=== PATIENT | male | born 1965 | race Caucasian/White ===

== ENCOUNTER 2024-06-20 18:37 | Emergency (ER) | payer OTHER, SELFPAY ==
--- OUTSIDE RECORDS SUMMARY | 2024-06-20 18:40 | XMS_ITS | Clinical Summary ---
Author Organization [facility] Address [address] [place] [address] Care Team Providers Care Forms Designer Name Role Phone Ranjit Trimble MD Primary Care Provider Karey Fleming PROMOTIONS DIRECTOR Unavailable [phone] Allergies No known active allergies Medications Multivitamin Cmb No.21-Iron-FA 18-400 mg-mcg tab Take 1 tablet by mouth once daily. Active mometasone (NASONEX) (50 mcg each actuation) nasal spray Inhale 1 Aguila into both nostrils 2 times daily. Active nitroglycerin (NITROSTAT) 0.4 mg sublingual tabletIndication s:NSTEMI (non-ST elevated myocardial infarction) (HC) Place 1 tablet under the tongue every 5 minutes if needed. 25 tablet 12/22/2019 3:41 PM CDT 0 Active cholecalciferol 5,000 unit tab tablet Take 1 Tablet (5,000 units) by mouth once daily. 2 Active oxygen-air delivery systems (HOME OXYGEN)Indicatio ns:Moderate persistent asthma without complication (HC),Hypoxia,TITUS (obstructive sleep apnea) Oxygen concentrator for home use. Liters per minute: 2l per nasal cannula. Frequency of use: Nocturnal;. Length of need: 99 Months.(no portability) Cisco 525DS 1 Each 3 Active albuterol HFA (Ventolin HFA) 90 mcg/actuation inhalerIndicatio ns:Moderate persistent asthma without complication (HC) Inhale 2 Puffs by mouth 4 times daily if needed for Shortness of Breath 2nd choice or Wheezing 1st choice. 18 g 4 Active fluticasone propion-salmeter oL (Advair Diskus) 500-50 mcg/Dose diskus inhalerIndicatio ns:Moderate persistent asthma without complication (HC) INHALE 1 PUFF 2 TIMES A DAY 180 Each 3 4 Active Singulair 10 mg tabletIndication s:Moderate persistent asthma without complication (HC),Chronic rhinitis TAKE 1 TABLET AT BEDTIME 90 Tablet 3 4 Active clopidogreL (PLAVIX) 75 mg tabletIndication s:Coronary artery disease due to calcified coronary lesion Take 1 Tablet (75 mg) by mouth once daily. 90 Tablet 3 4 Active atorvastatin (LIPITOR) 40 mg tabletIndication s:Coronary artery disease due to calcified coronary lesion Take 1 Tablet (40 mg) by mouth once daily. 90 Tablet 3 4 Active ezetimibe (ZETIA) 10 mg tabletIndication s:Coronary artery disease due to calcified coronary lesion,NSTEMI (non-ST elevated myocardial infarction) (HC) Take 1 Tablet (10 mg) by mouth once daily. 90 Tablet 3 4 Active polyethylene glycol-electroly te (GOLYTELY) 236-22.74-6.74 -5.86 gram suspensionIndica tions:Encounter for screening colonoscopy Drink 2 liters (half the bottle) the day before colonoscopy and 2 liters (remaining prep) 6 hours prior to colonoscopy appointment. 4000 mL 5 Active semaglutide, weight loss, (Wegovy) 2.4 mg/0.75 mL subcutaneous penIndications:C lass 2 severe obesity with body mass index (BMI) of 35 to 39.9 with serious comorbidity (HC) Inject 2.4 mg subcutaneous once weekly. 5 Active losartan-hydroch lorothiazide, 50-12.5 mg, (Hyzaar) 50-12.5 mg tabletIndication s:Essential hypertension TAKE 1 TABLET DAILY 90 Tablet 5 Active CPAPIndications: TITUS (obstructive sleep apnea) CPAP (E0601) machine for home use at pressure: 5-16 , Choice of mask (A7030 or A7034) w/full face cushion (A7031) x1/mo, nasal cushion (A7032) x2/mo, or nasal pillows (A7033) x 2/mo; Length of Need: 99 months; Frequency of use: Daily 1 Each 11 5 Active Active Problems Problem Noted Date Diagnosed Date Personal history of nicotine dependence 06/29/19 23 06/28/2022 Body mass index (bmi) 32.0-32.9, adult 3 Colon polyp 03/31/2021 Overview (04/14/2024): Colonoscopy 03/2021 14 mm TA, repeat in 3 years Colonoscopy 03/2024 normal, repeat in 5 years Coronary artery disease involving [place] heart 0 04/28/2020 06/28/2022 Overview (06/28/2022): Replacing diagnoses that were inactivated after the 12/16/2020 regulatory import. Essential hypertension 12/29/2019 NSTEMI (non-ST elevated myocardial infarction) 1 Overview (12/22/2019): - coronary angiogram on 12/22/2019 with SHAYNA to RCA Unstable angina 12/21/2019 Vitamin D deficiency 11/13/2018 Obstructive sleep apnea 02/11/2018 Adenomatous colon polyp 11/26/2017 Overview (04/14/2024): Colonoscopy 11/2017 polyp, repeat in 3 years Colonoscopy 03/2024 normal, repeat in 5 years Moderate persistent asthma without complication 12/28/2014 Chronic sinusitis 12/28/2014 Severe persistent asthma 12/28/2014 023 Major depressive disorder, single episode, unspe cified 12/05/2012 Accidental drug overdose 04/21/2012 Fam hx-ischem heart disease 05/31/2011 Overview (05/31/2011): Brother had KS at 49 Pneumonitis 06/21/2008 Overview (06/21/2008): Evaluated by Dr. [place] and Paez. No positive fungal culture, but treated with 2 courses of itraconazole in the past few years. Bronchiectasis without acute exacerbation 2007 Overview (06/28/2022): Bronchiectasis NOS Anxiety 09/19/2006 Insomnia 09/19/2006 Resolved Problems Problem Noted Date Diagnosed Date Resolved Date TIA (transient ischemic attack) 04/20/2012 04/21/2012 Encounters Date Type Department Care Team Description 05/20/2024 10:15 AM MANUSCRIPTS CURATOR Telemedicine [facility] [address] [place] [address] [address] [facility] [address] [place] [address] Karey Fleming, PROMOTIONS DIRECTOR Telehealth 05/15/2024 Travel 05/12/2024 Refill [facility] [address] [place] [address] Glory Blunt DO Refill Request (Hyzaar) 04/15/2024 Orders Only [facility] [address] [place] [address] Rui Pope MD 1 scan: (1-Ord) [facility] 04/14/2024 8:27 AM MANUSCRIPTS CURATOR - 04/14/2024 11:59 PM MANUSCRIPTS CURATOR Hospital Encounter Rui Pope MD 04/14/2024 Orders Only [facility] [address] [facility] [address] [place] [address] Rui Pope MD <No scans attached> 04/14/2024 Surgery [facility] [address] [facility] [address] [place] [address] Rui Pope MD colonoscopy, screening 04/13/2024 Telephone [facility] [address] [place] [address] Rui Pope MD Questions (Colonoscopy) 04/09/2024 8:05 AM MANUSCRIPTS CURATOR Office Visit [facility] [address] [place] [address] Glory Blunt DO Pre-Op Exam (Colonoscopy 04/14/24) 04/09/2024 Travel 04/07/2024 Telephone [facility] [address] [place] [address] Rui Pope MD Appointment Reminder (Colonoscopy at [facility] 04/14/24) 03/26/2024 Telephone [facility] [address] [place] [address] Rui Pope MD Need Meds from Last 3 Months Immunizations Immunization Administration Dates Next Due COVID-19 vaccine (DecoSnap NTDenty's 30mcg/0.3mL) PF, MDV 06/28/2020,06/07/2020 INFLUENZA, IIV3 PF (AGE >= 6 MO) 03/15/2014 Influenza Virus, Unspecified 01/27/1996 Influenza, CCIIV3 (Age >=6 MO) (Egg Free) 2023 Influenza, IIV3 (Age >=3 years) 01/15/2012,12/30 Influenza, IIV4 12/29/2019,12/11/2018 Influenza, IIV4 (=>6mos) MDV 12/13/2016 Influenza,CCIIV4 PRESERV FREE 12/31/2022, 022,03/15/2018 Pneumococcal Conj 20-valent (Prevnar 20) 023 Pneumococcal Poly,23-Valent (Pneumovax) 04/21/19 13 Tdap 05/23/2022,12/30/2008 Zoster (Shingrix-RZV, recombinant) 05/23/2022, Family History Medical History Relation Name Comments Heart Disease Brother 2 [place] age 49 Diabetes Brother 3 same brother wi th KS Allergies Father Asthma Father Cancer-prostate Father Lymphoma Mother Good Health Sister 2 Allergies Son Relation Name Status Comments Brother 1 Alive Brother 2 Brother 3 Father Mother Sister 1 Alive Sister 2 Son Social History Tobacco Use Types Packs/Day Years Used Date Smoking Tobacco: Former Cigarettes Q uit: 03/18/1993 Smokeless Tobacco: Never Tobacco Cessation:Counseling Given: Yes Comments:Quit 03/18/93 Alcohol Use Standard Drinks/Week Comments No 0 (1 standard drink = 0.6 oz pur e alcohol) sober since 11/25/15 PHQ-2 Answer Date Recorded PHQ-2 TOTAL SCORE 0 04/09/2024 Social Connections Answer Date Recorded Do you often feel lonely or isolated from those around you? 0 06/23/2023 Financial Resource Strain Answer Date R ecorded Difficulty of Paying Living Expenses 3 06/23/2023 Difficulty of Paying Living Expenses Not on file 06/23/2023 Food Insecurity Answer Date Recorded Do you worry your food will run out before you are able to buy more? 1 06/23/2023 Transportation Needs Answer Date Record ed Does lack of transportation keep you from medica l appointments? 1 06/23/2023 Does lack of transportation keep you from work, meetings or getting things that you need? 1 06/23/2023 Housing Stability Answer Date Recorded What is your housing situation today? 1 06/23/2023 Utilities Answer Date Recorded Do you have trouble paying f or utilities (for example, heat, electricity, water, phone)? 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 Not on file Not on file Obstetrics History Last Filed Vital Signs Vital Sign Reading Time Taken Comments Blood Pressure 136/80 04/09/2024 8:11 AM MANUSCRIPTS CURATOR Pulse 78 04/09/2024 8:11 AM MANUSCRIPTS CURATOR Temperature 36.5 C (97.7 F) 04/09/2024 8:11 AM MANUSCRIPTS CURATOR Respiratory Rate 16 07/12/2020 3:17 PM CDT Oxygen Saturation 93% 04/09/2024 8: 11 AM MANUSCRIPTS CURATOR Inhaled Oxygen Concentration - - Weight 97.4 kg (214 lb 12.8 oz) 04/09/2024 8:11 AM MANUSCRIPTS CURATOR Height 188 cm (6' 2) 01/28/2024 9:45 AM MANUSCRIPTS CURATOR Body Mass Index 27.58 01/28/2024 9:45 AM MANUSCRIPTS CURATOR Plan of Treatment Health Maintenance Due Date Last Done Comments Hepatitis C screening for ag e 18-79 1983 BMI (ht and wt on same day) for age 18+ 01/27/2025 01/28/2024, 07/02/2023, 06/28/2022, Additional history exists Depression screening for age 12+ 04/09/2025 04/09/2024, 06/28/2022, 03/24/2020, Additional history exists Lipids for age 45-75 02/03/2029 02/04/2024, 06/28/2022, 01/03/2021, Additional history exists Colonoscopy through age 75 04/14/202904/14, 03/30/2021, 11/22/2017, Additional history exists Tetanus booster 05/23/2032 05/23/2022, 12/30/2008 Tdap Completed 05/23/2022, 12/30/2008 Zoster (shingles) series for age 50+ Completed 05/23/2022, 11/13/2018 HIV for age 15-65 Completed 06/28/2022 Pneumococcal series for age 50+ Completed , 04/21/2012 COVID-19 vaccine series Completed 02/23/20 24, 12/31/2022, 03/05/2022, Additional history exists Influenza Vaccine Completed 02/23/2024, , 01/24/2022, Additional history exists Goals Goal Patient Goal Type Associated Problems Recent Progress Patient-Stated? Author BLOOD PRESSURE - MAINTAINS BP less than 140/90 Blood Pressure Edgar Jones MD Procedures Procedure Name Priority Date/Time Associated Diagnosis Comments COLONOSCOPY SCREENING Routine 04/14/2024 12:00 AM MANUSCRIPTS CURATOR Encounter for screening colonoscopy POTASSIUM Routine 04/09/2024 8:38 AM MANUSCRIPTS CURATOR Pre-op evaluation LIPID PANEL Routine 02/04/2024 9:34 AM MANUSCRIPTS CURATOR Coronary artery disease due to calcified coronary lesion LC HIV-1/O/2, 4TH GENERATION Routine 06/28/2022 11:30 AM CDT Screening for HIV (human immunodeficiency virus) SURGICAL PROCEDURE (TYPE PROCEDURE DESCRIPTION BELOW) Encounter for screening colonoscopy from Last 3 Months or Most Recently Relevant to Health Maintenance Results * COLONOSCOPY SCREENING (04/14/2024 12:00 AM MANUSCRIPTS CURATOR) Rui Pope MD GI PROCEDURE ORD Final Re sult * POTASSIUM (04/09/2024 8:38 AM MANUSCRIPTS CURATOR) POTASSIUM 5.3 3.5 - 5.3 mmol/L [facility] Blood BLOOD SPECIMEN / Unknown 04/09/2024 8:38 AM MANUSCRIPTS CURATOR 04/09/2024 8:38 AM MANUSCRIPTS CURATOR Glory Rigobertosánchez DO CHEMISTRY Final Result [facility] [address] [place] [address], [facility] [address] [place] [address] * LIPID PANEL (02/04/2024 9:34 AM MANUSCRIPTS CURATOR) Pathologist [facility] CHOLESTEROL, TOTAL 139 <200 mg/dL [facility] HDL CHOLESTEROL 56 > OR = 40 mg/dL [facility] TRIGLYCERIDES 105 <150 mg/dL [facility] LDL-CHOLESTEROL 64 mg/dL (calc) [facility] Comment: Reference range: <100 Desirable range <100 mg/dL for primary prevention; <70 mg/dL for patients with CHD or diabetic patients with > or = 2 CHD risk factors. LDL-C is now calculated using the Rui-Manoj calculation, which is a validated novel method providing better accuracy than the Friedewald equation in the estimation of LDL-C. Rui RENTERIA et al. RADHA. 2013;310(19): 5297-4103 (http://education.Medesen.Wavo.me/faq/RYD177) CHOL/HDLC RATIO 2.5 <5.0 (calc) [facility] NON HDL CHOLESTEROL 83 <130 mg/dL (calc) [facility] Comment: For patients with diabetes plus 1 major ASCVD risk factor, treating to a non-HDL-C goal of <100 mg/dL (LDL-C of <70 mg/dL) is considered a therapeutic option. Blood BLOOD SPECIMEN / Unknown 02/04/2024 9:34 AM MANUSCRIPTS CURATOR 02/04/2024 9:34 AM MANUSCRIPTS CURATOR Ranjit Trimble MD CHEMISTRY Final Result [facility] [address] [place] [address], [facility] [address] [place] [address] * LC HIV-1/O/2, 4TH GENERATION (06/28/2022 11:30 AM CDT) [facility] HIV Scr 4th Gen Non Reactive Non Reactive 07/01/2022 12:07 PM CDT [facility] Comment: HIV Negative HIV-1/HIV-2 antibodies and HIV-1 p24 antigen were NOT detected. There is no laboratory evidence of HIV infection. Blood BLOOD SPECIMEN / Unknown Venipuncture / Unknown 06/28/2022 11:30 AM CDT 06/28/2022 11:33 AM CDT Narrative [facility] - 07/01/2022 12:07 PM CDT Performed at: [address] [place] [id number] City Editor: Rakesh Nicole MD, Phone: [phone] us Glory Blunt DO LABORATORY Final Result [facility] [address] [place] [id number], from Last 3 Months or Most Recently Relevant to Health Maintenance Insurance [facility] Advance Directives * Full Code (Latest Code Status on File) Date Activated Date Inactivated Comments 12/21/2019 7:21 PM 12/23/2019 2:43 PM Question Answer Comments Code Status Discussion: Per Existing Order * Full Code Date Activated Date Inactivated Comments 04/20/2012 9:37 PM 04/21/2012 1:42 PM * Full Code Date Activated Date Inactivated Comments 01/04/2009 11:57 AM 01/04/2009 9:31 PM * Full Code Date Activated Date Inactivated Comments 06/21/2008 6:40 PM 06/22/2008 9:32 PM Care Teams Forms Designer Relationship Specialty Start Date End Date Ranjit Trimble MD [address] [place] [address] [address] [place] [address] PCP - General Cardiovascular Disease 01/23/24 Karey Fleming, PROMOTIONS DIRECTOR [address] [place] [address] Sleep Medicine 01/28/24
--- OUTSIDE RECORDS SUMMARY | 2024-06-20 18:40 | XMS_ITS | Encounter Summary ---
Author Organization [place] Address [address] [place] [address]. [place] [address] Care Team Providers Care Sporting Goods Sales Manager Name Role Phone Edgar Torres Primary Care Provider Radha Acevedo MD Unavailable [phone] Encounter Details Date Type Department Care Team (Late st Contact Info) Description 12/21/2019 External Order Results [facility] [address] [place] [address] Outside, Provider Social History Tobacco Use Types Packs/Day Years Used Date Smoking Tobacco: Former Smokeless Tobacco: Never Alcohol Use Standard Drinks/Week Comments Yes 0 (1 standard drink = 0.6 oz pur e alcohol) social Sex and Gender Information Value Date Recorded Sex Assigned at Not on file Legal Sex Male 3:43 AM GEOGRAPHIC INFORMATION SYSTEM SURVEYOR Gender Identity Not on file Sexual Orientation Not on file documented as of this encounter Plan of Treatment Not on file documented as of this encounter Procedures Procedure Name Priority Date/Time Associated Diagnosis Comments COVID-19 VIRUS (CORONAVIRUS) BY PCR (EXTERNAL RESULT) Routine 12/21/2019 10:36 PM CDT documented in this encounter Results * COVID-19 Virus (Coronavirus) by PCR (External Result) (12/21/2019 10:36 PM CDT) COVID-19 Virus by PCR (External Result) Negative Negative LABDE SCAN 12/21/2019 10:3 6 PM CDT Iker BAEZ PFT - 12/31/2019 9:27 AM CDT Verified by Raudel Nath on 12/31/2019. us Patient Reported LABORATORY Edited Result - Final NESTOR PFT LABDE SCAN documented in this encounter Visit Diagnoses Not on filedocumented in this encounter Care Teams Sporting Goods Sales Manager Relationship Specialty Start Date End Date Edgar Torres PCP - General Family Practice 02/18/14 Radha Ferro MD [address] [facility] [address] [facility] [place] [address] Internal Medicine 07/11/14 documented as of this encounter
--- OUTSIDE RECORDS SUMMARY | 2024-06-20 18:40 | XMS_ITS | Referral Summary ---
Author Organization [facility] Address [address] [place] [address] Care Team Providers Care Manager Continuous Improvement Name Role Phone Unavailable Primary Care Provider Unavailabl e Allergies No known active allergies Medications fluticasone 500 mcg-salmeterol 50 mcg (ADVAIR) 500-50 mcg/dose Inhl DsDv diskus inhaler Inhale 1 puff Twice a Day. Active multivitamin (CERTAVITE) 18-400 mg-mcg oral tablet Take 1 tablet by mouth once daily. Active aspirin 81 mg oral enteric coated tablet Take 81 mg by mouth once daily. Active cholecalciferol (VITAMIN D3) 400 unit oral Tab Take 400 Units by mouth once daily. Active fluticasone (FLONASE) 50 mcg/actuation nasal spray Instill 2 sprays into EACH nare once daily. Active Fish Oil (FISH OIL) 340-1,000 mg oral capsule Take 1,000 mg by mouth once daily. Active Active Problems Problem Noted Date Diagnosed Date Chronic sinusitis 12/28/2014 Severe persistent asthma 12/28/2014 Anxiety state 09/19/2006 Insomnia 09/19/2006 Social History Tobacco Use Types Packs/Day Years Used Date Smoking Tobacco: Former Sex and Gender Information Value Date Recorded Sex Assigned at Not on file Legal Sex Male 1:30 PM CDT Gender Identity Not on file Sexual Orientation Not on file Last Filed Vital Signs Vital Sign Reading Time Taken Comments Blood Pressure 124/64 12/26/2016 1:18 PM CDT Pulse 81 12/26/2016 1:18 PM CDT Temperature - - Respiratory Rate - - Oxygen Saturation 93% 12/26/2016 1:18 PM CDT RA Inhaled Oxygen Concentration - - Weight 110.7 kg (244 lb) 12/26/2016 1:18 PM CDT Height 188 cm (6' 2) 12/26/2016 1:18 PM CDT Body Mass Index 31.33 12/26/2016 1:18 PM CDT Plan of Treatment Not on file Insurance [employer] OUT OF STATE COMMERCIAL
--- OUTSIDE RECORDS SUMMARY | 2024-06-20 18:40 | XMS_ITS | Clinical Summary ---
Author Organization [place] Address [facility] [place] [address] Care Team Providers Care Human Relations Manager Name Role Phone Edgar Torres Primary Care Provider Radha Acevedo MD Unavailable Allergies No known active allergies Medications Mometasone Furoate (NASONEX NA) Apply 1 spray into each nare daily Active albuterol 90 MCG/ACT inhaler Inhale 2 puffs into the lungs 3 times daily as needed. Active Saline (SODIUM CHLORIDE) 0.65 % SOLN [place] 4 Squirts in nostril 4 times daily. Active zolpidem (AMBIEN) 10 MG tabletIndicatio ns:Insomnia Take 1 tablet by mouth nightly as needed for sleep. 30 tablet 6 3 Active fluticasone-dara meterol (ADVAIR) 500-50 MCG/DOSE diskus inhaler Inhale 1 puff into the lungs every 12 hours Active CALCIUM PO Take 1 tablet by mouth daily 0 Active aspirin EC 81 MG EC tablet Take 81 mg by mouth daily Active albuterol (PROVENTIL) (2.5 MG/3ML) 0.083% neb solution Take 2.5 mg by nebulization every 6 hours as needed for shortness of breath / dyspnea or wheezing Active cholecalciferol (VITAMIN D3) 125 mcg (5000 units) capsule Take 125 mcg by mouth daily Active ticagrelor (BRILINTA) 90 MG tablet Take 90 mg by mouth 2 times daily Active metoprolol tartrate (LOPRESSOR) 12.5 mg TABS half-tab Take 12.5 mg by mouth 2 times daily Active losartan (COZAAR) 25 MG tablet Take 25 mg by mouth daily Active rosuvastatin (CRESTOR) 20 MG tablet Take 20 mg by mouth At Bedtime Active montelukast (SINGULAIR) 10 MG tablet Take 10 mg by mouth At Bedtime Active Active Problems Problem Noted Date Diagnosed Date Coronary artery disease invo [place] heart, angina presence unspecified, unspecified vessel or lesion type 04/28/2020 Overview (12/16/2020): Replacing diagnoses that were inactivated after the 12/16/2020 regulatory import. Chest pain, unspecified type 04/28/2020 Anxiety 11/20/2012 Insomnia 11/20/2012 Asthma 11/14/2011 Immunizations Name Administration Dates Next Due Influenza (IIV3) PF 01/16/2013,01/15/2012,2008 Influenza (intradermal) 01/27/1996 Influenza Vaccine >6 months,quad, PF 12/11/2018, 03/15/2018,12/13/2016 Pneumococcal 23 valent 04/21/2012 Tdap (Adult) Unspecified Formulation 12/30/2008 Zoster recombinant adjuvanted (Shingrix) 019 Family History Medical History Relation Comments Diabetes Brother Myocardial Infarction Brother Heart Failure Father Other Cancer Maternal Grandmother Diabetes Mother Other Cancer Mother lymphatic Heart Failure Paternal Grandfather Other Cancer Paternal Grandmother Relation Status Comments Brother Alive Father (Age 72) heart failure Maternal Grandfather Maternal Grandmother Mother (Age 75) cancer Paternal Grandfather Paternal Grandmother Sister Alive Social History Tobacco Use Types Packs/Day Years Used Date Smoking Tobacco: Former Cigarettes 2 2 Smokeless Tobacco: Never Tobacco Cessation:Counseling Given: No Alcohol Use Standard Drinks/Week Comments Not Currently 0 (1 standard drink = 0.6 oz pure alcohol) Prior alcohol abuse - sober 4+ years Adolescent Education Answer Date Record ed Getting School Help Needed Not on file 12/23 Sex and Gender Information Value Date Recorded Sex Assigned at Not on file Legal Sex Male 3:43 AM ANALYSIS INTERN Gender Identity Not on file Sexual Orientation Not on file Last Filed Vital Signs Vital Sign Reading Time Taken Comments Blood Pressure 147/89 04/29/2020 9:00 AM ANALYSIS INTERN Pulse 80 04/29/2020 9:00 AM ANALYSIS INTERN Temperature 35.2 C (95.4 F) 04/29/2020 9:00 AM ANALYSIS INTERN Respiratory Rate 20 04/29/2020 9:00 AM ANALYSIS INTERN Oxygen Saturation 92% 04/29/2020 9:00 AM ANALYSIS INTERN Inhaled Oxygen Concentration - - Weight 118.9 kg (262 lb 1.6 oz) 04/28/2020 7:51 PM ANALYSIS INTERN Height 188 cm (6' 2) 04/28/2020 7:51 PM ANALYSIS INTERN Body Mass Index 33.65 04/28/2020 7:51 PM ANALYSIS INTERN Plan of Treatment Not on file Insurance BCBS OUT OF STATE Advance Directives For more information, please contact: [phone] * Full Code (Latest Code Status on File) Date Activated Date Inactivated Comments 04/29/2020 10:18 AM Question Answer Comments Code status determined by: Discussion with patie nt/ legal decision maker * Full Code Date Activated Date Inactivated Comments 04/28/2020 7:56 PM 04/29/2020 10:18 AM All basic a nd advanced life-sustaining interventions are performed as appropriate Question Answer Comments Code status determined by: Discussion with patie nt/ legal decision maker Care Teams Human Relations Manager Relationship Specialty Start Date End Date Edgar Torres PCP - General Family Practice 02/18/14 Radha Ferro MD [address] [place] [address] [address] [place] [address] Internal Medicine 07/11/14
--- OUTSIDE RECORDS SUMMARY | 2024-06-20 18:40 | XMS_ITS | Clinical Summary ---
Author Organization [facility] Address [address] [place] [address] Care Team Providers Care Tank Driver Name Role Phone Unavailable Primary Care Provider [...] asthma 12/28/2014 Anxiety state 09/19/2006 Insomnia 09/19/2006 Family History Medical History Relation Comments Heart Disease Father Diabetes Mother Relation Status Comments Father Mother Social History Tobacco Use Types Packs/Day Years [...] 12/26/2016 1:18 PM CDT Plan of Treatment Health Maintenance Due Date Last Done Comments Colonoscopy 1965 Hepatitis C Screening 1965 Lipid Screening 1965 Anxiety Follow-Up (SARAI-7) 1966 Depression Assessment (PHQ-2) 1966 Pneumococcal 50+ Years (2 of 2 - PCV) 04/21/2013 04/21/2012 Pneumococcal Vaccine (2 of 2 - PCV) 04/21/2013 04/21/2012 Yearly Review of HCD 2015 Zoster Vaccine (1 of 2) 2015 Adult Tetanus Booster 12/30/2018 12/30/2008 COVID-19 Vaccine (1 - 2023-2 5 season) 2023 Influenza Vaccine (Season Ended) 2024 12/13/2016, 03/15/2014, 01/15/2012, Additional history exists RSV Vaccines (1 - 1-dose 75+ series) 02/13/2040 Insurance BCBS OUT OF STATE COMMERCIAL
[2024-06-20 18:44] VITALS: BP 128/78; PULSE 100; RESP 22; O2SAT 92; BMI 26.4
--- NOTE | 2024-06-20 19:19 | ED.GENADULT ---
HPI - General Adult General Chief complaint: Animal Bite Stated complaint: R hand lac Time Seen by Provider: 06/20/24 18:38 History of Present Illness HPI narrative: 59-year-old male was bitten between foster dog in his own animal. Both her up-to-date on immunizations by his report. He is up-to-date on tetanus. He cut the back and macerated the back of his right hand. This was with a bite. He does not feel like he has injured his hand to the point of having a fracture he is able to flex extend his hand fairly well. There is no limitations in motion. He has had a good amount of bleeding and now it has seemed to stop somewhat. Presents ER for evaluation. No other injuries reported. Law enforcement has been contacted. The patient reports he has had an [facility] in the past, his medicines include clopidogrel currently. Related Data Home Medications ?Medication ?Instructions ?Recorded ?Confirmed atorvastatin 40 mg tablet 40 mg PO DAILY 06/20/24 06/20/24 clopidogrel 75 mg tablet 75 mg PO DAILY 06/20/24 06/20/24 ezetimibe 10 mg tablet 10 mg PO DAILY 06/20/24 06/20/24 fluticasone 500 mcg-salmeterol 50 1 ea inhalation BID 06/20/24 06/20/24 mcg/dose blistr powdr for inhalation (Yonas Inhub) losartan 50 mg-hydrochlorothiazide 1 tab PO DAILY 06/20/24 06/20/24 12.5 mg tablet montelukast 10 mg tablet 10 mg PO QPM 06/20/24 06/20/24 Allergies Allergy/AdvReac Type Severity Reaction Status Date / Time No Known Drug Allergies Allergy Verified 06/20/24 18:49 Review of Systems Status of ROS: Reports: 6 or more systems reviewed and unremarkable except as noted in History and below PFSH [facility] Social History Smoking Status: Former smoker Do you use any of these nicotine containing products: None How often do you have a drink containing alcohol: never AUDIT-C Alcohol total score: 0 Non-prescribed substance use: denies use service: No Exam Narrative: Exam Narrative: Objective vital signs are within normal limits in general the patient is no apparent distress resting comfortably His left hand shows full range of motion of the neurovascular function of his hand and wrist. He has got a macerated 2 linear laceration over the back of the right hand, this is in the mid hand to the lateral to the extremity to look scanning to the medial hand. Total length of both lacerations is about 8 cm. This is in total. Distal CMS intact. Const: Vital Signs, click to edit/add: Vital Signs - 24 hr 06/20/24 18:44 Pulse Rate [Right Pulse Oximeter] 100 Respiratory Rate 22 Blood Pressure [Le ft Upper Arm] 128/78 Pulse Oximetry 92 Oxygen Delivery Me thod Room Air Course Vital Signs Vital signs: Initial Vital Signs Pulse Rate 100 06/20/24 18:44 Pulse Rhythm Regular 06/20/24 18:44 Pulse Strength 3+ Normal 06/20/24 18:44 Respiratory Rate 22 06/20/24 18:44 Blood Pressure 128/78 06/20/24 18:44 Blood Pressure Mean 94 06/20/24 18:44 Blood Pressure Position Sitting 06/20/24 18:44 Pulse Oximetry 92 06/20/24 18:44 Oxygen Delivery Method Room Air 06/20/24 18:44 Vital Signs Pulse Rate 100 06/20/24 18:44 Respiratory Rate 22 06/20/24 18:44 Blood Pressure 128/78 06/20/24 18:44 Pulse Oximetry 92 06/20/24 18:44 Oxygen Delivery Method Room Air 06/20/24 18:44 Pulse Rate 100 06/20/24 18:44 Respiratory Rate 22 06/20/24 18:44 Blood Pressure 128/78 06/20/24 18:44 Pulse Oximetry 92 06/20/24 18:44 Oxygen Delivery Method Room Air 06/20/24 18:44 Medications Administered Medications: Generic Name Dose Route Start Last Admin Trade Name Freq PRN Reason Stop Dose Admin Cephalexin HCl 500 mg 06/20/24 19:18 06/20/24 19:27 Cephalexin 500 Mg Capsule PO 06/20/24 19:19 500 mg ONCE ONE Administration Medical Decision Making [facility] Narrative Medical decision making narrative: Procedure: After sterile scrub with xylocaine and irrigation the wound was in closed with 3-0 simple interrupted sutures. Good skin edge approximation good hemostasis. Normal neurovascular function of the hand after repair. After careful inspection underneath the laceration after and that anesthetic, the patient had no obvious tendon involvement or arterial bleeding. The patient had sutures removed in 7 days, light activity the hand. Will place an Zay wrap on the hand today. Will give him Keflex 500 q.i.d. x5 days. He is up-to-date on tetanus. Law enforcement contacted. I did go back and check the patient about 10 minutes after apparent was no further bleeding it was wrapped by nursing staff. Discharge Plan Discharge Clinical Impression: Bite by animal, Hand laceration Patient Disposition: Home w/ Parent or Adult Condition: Improved Additional Instructions: Light activity, watch for redness or infection keep covered for 24 hours then may soak off the bandage and cover with a simple bandage. Continue the Keflex 4 times a day for 5 days, Tylenol as needed for discomfort. Return if problems or concerns. Follow-up instructions by law enforcement Activity Level: Light activity Discharge Diet: Regular Prescriptions: No Action atorvastatin 40 mg tablet 40 mg PO DAILY clopidogrel 75 mg tablet 75 mg PO DAILY fluticasone propion-salmeterol [Wixela Inhub] 500-50 mcg/dose blister with device 1 ea INHALATION BID montelukast 10 mg tablet 10 mg PO QPM losartan-hydrochlorothiazide 50-12.5 mg tablet 1 tab PO DAILY ezetimibe 10 mg tablet 10 mg PO DAILY Follow Up/Referrals: Edgar Torres MD [Referring] - Stand Alone Forms: [place] Info Instructions
[2024-06-20] MEDS: cephALEXin 500 MG CAPSULE PO (19:27)
--- OUTSIDE RECORDS SUMMARY | 2024-06-20 19:37 | XMS_ITS | Clinical Summary ---
Author Organization [place] Address [facility] [address] Care Team Providers Care Rail Signal Designer Name Role Phone Edgar Torres Primary Care Provider Radha Acevedo MD Unavailable [phone] Allergies No known active allergies Medications Mometasone Furoate (NASONEX NA) Apply 1 spray into each nare daily Active albuterol 90 MCG/ACT inhaler Inhale 2 puffs into the lungs 3 times daily as needed. Active Saline (SODIUM CHLORIDE) 0.65 % SOLN [place] 4 Squirts in nostril 4 times daily. [...] Diagnosed Date Coronary artery disease invo lving [place] heart, angina presence unspecified, unspecified vessel or [...] on file Legal Sex Male 3:43 AM DECATIZER Gender Identity Not on file Sexual Orientation Not on file Last Filed Vital Signs Vital Sign Reading Time Taken Comments Blood Pressure 147/89 04/29/2020 9:00 AM DECATIZER Pulse 80 04/29/2020 9:00 AM DECATIZER Temperature 35.2 C (95.4 F) 04/29/2020 9:00 AM DECATIZER Respiratory Rate 20 04/29/2020 9:00 AM DECATIZER Oxygen Saturation 92% 04/29/2020 9:00 AM DECATIZER Inhaled Oxygen Concentration - - Weight 118.9 kg (262 lb 1.6 oz) 04/28/2020 7:51 PM DECATIZER Height 188 cm (6' 2) 04/28/2020 7:51 PM DECATIZER Body Mass Index 33.65 04/28/2020 7:51 PM DECATIZER Plan of Treatment Not on file Insurance BCBS OUT OF STATE Advance Directives For more information, please contact: [phone] * Full Code (Latest Code Status on [...] patie nt/ legal decision maker Care Teams Rail Signal Designer Relationship Specialty Start Date End Date Edgar Torres PCP - General Family Practice 02/18/14 Radha Ferro MD [address] [place] [address] [place] SANCHEZ [address] Internal Medicine 07/11/14
--- OUTSIDE RECORDS SUMMARY | 2024-06-20 19:37 | XMS_ITS | Referral Summary ---
Author Organization [facility] Address [address] [place] [address] Care Team Providers Care Manager Trade Marketing Name Role Phone Unavailable Primary Care Provider [...]
--- OUTSIDE RECORDS SUMMARY | 2024-06-20 19:37 | XMS_ITS | Encounter Summary ---
Author Organization [place] Address [address] [place] [address]. [place] [address] Care Team Providers Care Wireless Cellular Technician Name Role Phone Edgar Torres Primary Care Provider Radha Acevedo MD Unavailable [phone] Encounter Details Date Type Department Care Team (Late st Contact Info) Description 12/21/2019 External Order Results [facility] [address] [place] [address] Outside, Provider Social History Tobacco Use Types Packs/Day Years Used Date Smoking Tobacco: Former Smokeless Tobacco: Never Alcohol Use Standard Drinks/Week Comments Yes 0 (1 standard drink = 0.6 oz pur e alcohol) social Sex and Gender Information Value Date Recorded Sex Assigned at Not on file Legal 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
--- OUTSIDE RECORDS SUMMARY | 2024-06-20 19:37 | XMS_ITS | Clinical Summary ---
Author Organization [facility] Address [address] [place] [address] Care Team Providers Care Shuttle Truck Driver Name Role Phone Unavailable Primary Care [...]
--- OUTSIDE RECORDS SUMMARY | 2024-06-20 19:37 | XMS_ITS | Clinical Summary ---
Author Organization [facility] Address [address] [place] [address] Care Team Providers Care Bag Press Operator Name Role Phone Ranjit Trimble MD Primary Care Provider Karey Fleming TICKET PULLER Unavailable [phone] Allergies No known active allergies Medications Multivitamin Cmb No.21-Iron-FA 18-400 mg-mcg tab Take 1 tablet by mouth once daily. Active mometasone (NASONEX) (50 mcg each actuation) nasal spray Inhale 1 [place] into both nostrils 2 times daily. Active [...] in 5 years Coronary artery disease involving [place] heart 0 04/28/2020 06/28/2022 Overview (06/28/2022): Replacing [...] heart disease 05/31/2011 Overview (05/31/2011): Brother had ME at 49 Pneumonitis 06/21/2008 Overview (06/21/2008): Evaluated [...] Department Care Team Description 05/20/2024 10:15 AM SUPERVISOR VENEER Telemedicine [facility] [address] [place] [address] [address] [facility] [address] [place] [address] Karey Fleming, TICKET PULLER Telehealth 05/15/2024 Travel 05/12/2024 Refill [facility] [address] [place] [address] Glory Blunt DO Refill Request (Hyzaar) 04/15/2024 Orders Only [facility] [address] [place] [address] Rui Pope MD 1 scan: (1-Ord) [facility] 04/14/2024 8:27 AM SUPERVISOR VENEER - 04/14/2024 11:59 PM SUPERVISOR VENEER Hospital Encounter Rui Pope MD 04/14/2024 Orders Only [facility] [address] [facility] [address] [place] [address] Rui Pope MD <No scans attached> 04/14/2024 Surgery [facility] [address] [facility] [address] [place] [address] Rui Pope MD colonoscopy, screening 04/13/2024 Telephone [facility] [address] [place] [address] Rui Pope MD Questions (Colonoscopy) 04/09/2024 8:05 AM SUPERVISOR VENEER Office Visit [facility] [address] [place] [address] Glory Blunt DO Pre-Op Exam (Colonoscopy 04/14/24) 04/09/2024 Travel 04/07/2024 Telephone [facility] [address] [place] [address] Rui Pope MD Appointment Reminder (Colonoscopy at [facility] 04/14/24) 03/26/2024 Telephone [facility] [address] [place] [address] Rui Pope MD Need Meds from Last 3 Months Immunizations Immunization Administration Dates Next Due COVID-19 vaccine (Sparkfly [employer]Pro[employer]Point 30mcg/0.3mL) PF, MDV 06/28/2020,06/07/2020 INFLUENZA, IIV3 PF [...] Relation Name Comments Heart Disease Brother 2 ME age 49 Diabetes Brother 3 same brother wi th ME Allergies Father Asthma Father Cancer-prostate Father Lymphoma [...] AM CDT Legal Sex Male 6:51 AM SUPERVISOR VENEER Gender Identity Not on file Sexual Orientation Straight 06/04/2020 8: 32 AM CDT 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 Not on file Not on file Obstetrics History Last Filed Vital Signs Vital Sign Reading Time Taken Comments Blood Pressure 136/80 04/09/2024 8:11 AM SUPERVISOR VENEER Pulse 78 04/09/2024 8:11 AM SUPERVISOR VENEER Temperature 36.5 C (97.7 F) 04/09/2024 8:11 AM SUPERVISOR VENEER Respiratory Rate 16 07/12/2020 3:17 PM CDT Oxygen Saturation 93% 04/09/2024 8: 11 AM SUPERVISOR VENEER Inhaled Oxygen Concentration - - Weight 97.4 kg (214 lb 12.8 oz) 04/09/2024 8:11 AM SUPERVISOR VENEER Height 188 cm (6' 2) 01/28/2024 9:45 AM SUPERVISOR VENEER Body Mass Index 27.58 01/28/2024 9:45 AM SUPERVISOR VENEER Plan of Treatment Health Maintenance Due Date [...] Comments COLONOSCOPY SCREENING Routine 04/14/2024 12:00 AM SUPERVISOR VENEER Encounter for screening colonoscopy POTASSIUM Routine 04/09/2024 8:38 AM SUPERVISOR VENEER Pre-op evaluation LIPID PANEL Routine 02/04/2024 9:34 AM SUPERVISOR VENEER Coronary artery disease due to calcified coronary lesion LC HIV-1/O/2, 4TH GENERATION Routine 06/28/2022 11:30 AM CDT Screening for HIV (human immunodeficiency virus) SURGICAL PROCEDURE (TYPE PROCEDURE DESCRIPTION BELOW) Encounter for screening colonoscopy from Last 3 Months or Most Recently Relevant to Health Maintenance Results * COLONOSCOPY SCREENING (04/14/2024 12:00 AM SUPERVISOR VENEER) Rui Pope MD GI PROCEDURE ORD Final Re sult * POTASSIUM (04/09/2024 8:38 AM SUPERVISOR VENEER) POTASSIUM 5.3 3.5 - 5.3 mmol/L [facility] Blood BLOOD SPECIMEN / Unknown 04/09/2024 8:38 AM SUPERVISOR VENEER 04/09/2024 8:38 AM SUPERVISOR VENEER Glory Rigobertosánchez DO CHEMISTRY Final Result [facility] [address] [place] [address], [facility] [address] [place] [address] * LIPID PANEL (02/04/2024 9:34 AM SUPERVISOR VENEER) Pathologist [facility] CHOLESTEROL, TOTAL 139 <200 mg/dL [facility] [...] LDL-C. Rui RENTERIA et al. RADHA. 2013;310(19): 9760-2201 (http://education.[employer].Neo[employer] Networks/faq/HBF898) CHOL/HDLC RATIO 2.5 <5.0 (calc) [facility] NON HDL CHOLESTEROL 83 <130 mg/dL (calc) [facility] Comment: For patients with diabetes plus 1 major ASCVD risk factor, treating to a non-HDL-C goal of <100 mg/dL (LDL-C of <70 mg/dL) is considered a therapeutic option. Blood BLOOD SPECIMEN / Unknown 02/04/2024 9:34 AM SUPERVISOR VENEER 02/04/2024 9:34 AM SUPERVISOR VENEER Ranjit Trimble MD CHEMISTRY Final Result [facility] [address] [place] [address], [facility] [address] [place] [address] * LC HIV-1/O/2, 4TH GENERATION (06/28/2022 11:30 AM CDT) [facility] HIV Scr 4th Gen Non Reactive Non Reactive 07/01/2022 12:07 PM CDT [facility] Comment: HIV Negative HIV-1/HIV-2 antibodies and HIV-1 p24 antigen were NOT detected. There is no laboratory evidence of HIV infection. Blood BLOOD SPECIMEN / Unknown Venipuncture / Unknown 06/28/2022 11:30 AM CDT 06/28/2022 11:33 AM CDT Narrative [facility] - 07/01/2022 12:07 PM CDT Performed at: [address] [place] [id number] Aniline Press Worker: Rakesh Nicole MD, Phone: [phone] us Glory Blunt DO LABORATORY Final Result [facility] [address] [place] [address], from Last 3 Months or Most Recently Relevant to Health Maintenance Insurance [facility] Advance Directives * Full Code (Latest Code [...] 6:40 PM 06/22/2008 9:32 PM Care Teams Bag Press Operator Relationship Specialty Start Date End Date Ranjit Trimble MD [address] [place] [address] [address] [place] [address] PCP - General Cardiovascular Disease 01/23/24 Karey Fleming, TICKET PULLER [address] [place] [address] Sleep Medicine 01/28/24
== END 2024-06-20 19:44 | disposition home or self-care (01) ==
PROVIDERS: Emergency Provider Family Medicine; PCP Student in an Organized Health Care Education/Training Program
DX: S61.411A Laceration without foreign body of right hand, initial encounter (principal); W54.0XXA Bitten by dog, initial encounter
CPT/HCPCS: 12001; 99283; 99284; A9270

== ENCOUNTER 2024-06-22 12:22 | Inpatient (IN) | payer OTHER, SELFPAY ==
--- OUTSIDE RECORDS SUMMARY | 2024-06-22 12:24 | XMS_ITS | Referral Summary ---
Author Organization [facility] Address [address] [place] [address] Care Team Providers Care Brassiere Cup Mold Cutter Name Role Phone Unavailable Primary Care Provider [...]
--- OUTSIDE RECORDS SUMMARY | 2024-06-22 12:24 | XMS_ITS | Clinical Summary ---
Author Organization [facility] Address [address] [place] [address] Care Team Providers Care Mobile Disc Jockey Name Role Phone Unavailable Primary Care Provider [...]
--- OUTSIDE RECORDS SUMMARY | 2024-06-22 12:24 | XMS_ITS | Encounter Summary ---
Author Organization [place] Address [address] [place] [address]. [place] [address] Care Team Providers Care Stylist Assistant Name Role Phone Edgar Torres Primary Care Provider Radha Acevedo MD Unavailable [phone] Encounter Details Date Type Department Care Team (Late st Contact Info) Description 12/21/2019 External Order Results [facility] [address] [place] [address] Outside, Provider Social History Tobacco Use Types Packs/Day Years Used Date Smoking Tobacco: Former Smokeless Tobacco: Never Alcohol Use Standard Drinks/Week Comments Yes 0 (1 standard drink = 0.6 oz pur e alcohol) social Sex and Gender Information Value Date Recorded Sex Assigned at Not on file Legal Sex Male 3:43 AM ALCOHOLIC COUNSELOR Gender Identity Not on file Sexual Orientation [...] on filedocumented in this encounter Care Teams Stylist Assistant Relationship Specialty Start Date End Date Edgar Torres PCP - General Family Practice 02/18/14 Radha Ferro MD [address] [facility] [address] [place] [address] Internal Medicine 07/11/14 documented as of this encounter
--- OUTSIDE RECORDS SUMMARY | 2024-06-22 12:24 | XMS_ITS | Clinical Summary ---
Author Organization [email or web address] [facility] Address [address] [place] [address] Care Team Providers Care Director Home Name Role Phone Ranjit Trimble MD Primary Care Provider Karey Fleming FRUIT STUFFER Unavailable [phone] Allergies No known active allergies Medications Multivitamin Cmb No.21-Iron-FA 18-400 mg-mcg tab Take 1 tablet by mouth once daily. Active mometasone (NASONEX) (50 mcg each actuation) nasal spray Inhale 1 [place] into both nostrils 2 times daily. Active [...] in 5 years Coronary artery disease involving [place] heart 0 04/28/2020 06/28/2022 Overview (06/28/2022): Replacing [...] heart disease 05/31/2011 Overview (05/31/2011): Brother had [place] at 49 Pneumonitis 06/21/2008 Overview (06/21/2008): Evaluated by Dr. Austin and Paez. No positive fungal culture, but treated with 2 courses of itraconazole in the past few years. Bronchiectasis without acute exacerbation 2007 Overview (06/28/2022): Bronchiectasis NOS Anxiety 09/19/2006 Insomnia 09/19/2006 Resolved Problems Problem Noted Date Diagnosed Date Resolved Date TIA (transient ischemic attack) 04/20/2012 04/21/2012 Encounters Date Type Department Care Team Description 06/22/2024 Nurse Triage [facility] [address] [place] [address] Glory Blunt DO Dog Bite (Follow-up) 05/20/2024 10:15 AM SHAREPOINT WEB DEVELOPER Telemedicine [facility] [address] [facility] [address] [facility] [address] [place] [phone] Karey Fleming NP Telehealth 05/15/2024 Travel 05/12/2024 Refill [facility] [address] [place] [address] Glory Blunt DO Refill Request (Hyzaar) 04/15/2024 Orders Only [facility] [address] [facility] [place] [address] Rui Pope MD 1 scan: (1-Ord) [facility] 04/14/2024 8:27 AM SHAREPOINT WEB DEVELOPER - 04/14/2024 11:59 PM SHAREPOINT WEB DEVELOPER Hospital Encounter Rui Pope MD 04/14/2024 Orders Only [facility] [address] [facility] [address] [place] [address] Rui Pope MD <No scans attached> 04/14/2024 Surgery [facility] [address] [facility] [address] [place] [address] Rui Pope MD colonoscopy, screening 04/13/2024 Telephone [facility] [address] [place] [address] Rui Pope MD Questions (Colonoscopy) 04/09/2024 8:05 AM SHAREPOINT WEB DEVELOPER Office Visit [facility] [address] [facility] [place] [address] Glory Blunt DO Pre-Op Exam (Colonoscopy 04/14/24) 04/09/2024 Travel 04/07/2024 Telephone [facility] [address] [place] [address] Rui Pope MD Appointment Reminder (Colonoscopy at [facility] 04/14/24) 03/26/2024 Telephone [facility] [address] [facility] [address] Rui Pope MD Need Meds from Last 3 Months Immunizations Immunization Administration Dates Next Due COVID-19 vaccine (Mowjow 30mcg/0.3mL) PF, MDV 06/28/2020,06/07/2020 INFLUENZA, IIV3 PF [...] Relation Name Comments Heart Disease Brother 2 TX age 49 Diabetes Brother 3 same brother wi th [place] Allergies Father Asthma Father Cancer-prostate Father Lymphoma [...] AM CDT Legal Sex Male 6:51 AM SHAREPOINT WEB DEVELOPER Gender Identity Not on file Sexual Orientation Straight 06/04/2020 8: 32 AM CDT 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 Not on file Not on file Obstetrics History Last Filed Vital Signs Vital Sign Reading Time Taken Comments Blood Pressure 136/80 04/09/2024 8:11 AM SHAREPOINT WEB DEVELOPER Pulse 78 04/09/2024 8:11 AM SHAREPOINT WEB DEVELOPER Temperature 36.5 C (97.7 F) 04/09/2024 8:11 AM SHAREPOINT WEB DEVELOPER Respiratory Rate 16 07/12/2020 3:17 PM CDT Oxygen Saturation 93% 04/09/2024 8:11 AM SHAREPOINT WEB DEVELOPER Inhaled Oxygen Concentration - - Weight 97.4 kg (214 lb 12.8 oz) 04/09/2024 8:11 AM SHAREPOINT WEB DEVELOPER Height 188 cm (6' 2) 01/28/2024 9:45 AM SHAREPOINT WEB DEVELOPER Body Mass Index 27.58 01/28/2024 9:45 AM SHAREPOINT WEB DEVELOPER Plan of Treatment Health Maintenance Due Date [...] Completed , 04/21/2012 COVID-19 vaccine series Completed 02/23/20, 12/31/2022, 03/05/2022, Additional history exists Influenza Vaccine Completed 02/23/2024, , 01/24/2022, Additional history exists Goals Goal Patient Goal Type Associated Problems Recent Progress Patient-Stated? Author BLOOD PRESSURE - MAINTAINS BP less than 140/90 Blood Pressure Edgar Jones MD Procedures Procedure Name Priority Date/Time Associated Diagnosis Comments COLONOSCOPY SCREENING Routine 04/14/2024 12:00 AM SHAREPOINT WEB DEVELOPER Encounter for screening colonoscopy POTASSIUM Routine 04/09/2024 8:38 AM SHAREPOINT WEB DEVELOPER Pre-op evaluation LIPID PANEL Routine 02/04/2024 9:34 AM SHAREPOINT WEB DEVELOPER Coronary artery disease due to calcified coronary lesion LC HIV-1/O/2, 4TH GENERATION Routine 06/28/2022 11:30 AM CDT Screening for HIV (human immunodeficiency virus) SURGICAL PROCEDURE (TYPE PROCEDURE DESCRIPTION BELOW) Encounter for screening colonoscopy from Last 3 Months or Most Recently Relevant to Health Maintenance Results * COLONOSCOPY SCREENING (04/14/2024 12:00 AM SHAREPOINT WEB DEVELOPER) Rui Pope MD GI PROCEDURE ORD Final Re sult * POTASSIUM (04/09/2024 8:38 AM SHAREPOINT WEB DEVELOPER) POTASSIUM 5.3 3.5 - 5.3 mmol/L [email or web address] Blood BLOOD SPECIMEN / Unknown 04/09/2024 8:38 AM SHAREPOINT WEB DEVELOPER 04/09/2024 8:38 AM SHAREPOINT WEB DEVELOPER Glory Blunt DO CHEMISTRY Final Result [facility] [address] [place] [address], [email or web address] [address] [place] [address] * LIPID PANEL (02/04/2024 9:34 AM SHAREPOINT WEB DEVELOPER) CHOLESTEROL, TOTAL 139 <200 mg/dL [facility] HDL CHOLESTEROL 56 > OR = 40 mg/dL [facility] TRIGLYCERIDES 105 <150 mg/dL [facility] LDL-CHOLESTEROL 64 mg/dL (calc) [facility] Comment: Reference range: <100 Desirable range <100 mg/dL for primary prevention; <70 mg/dL for patients with CHD or diabetic patients with > or = 2 CHD risk factors. LDL-C is now calculated using the Adilson calculation, which is a validated novel method providing better accuracy than the Friedewald equation in the estimation of LDL-C. Rui RENTERIA et al. RADHA. 2013;310(19): 0480-0676 (http://education.[employer]/faq/FWQ060) CHOL/HDLC RATIO 2.5 <5.0 (calc) [facility] NON HDL CHOLESTEROL 83 <130 mg/dL (calc) [facility] Comment: For patients with diabetes plus 1 major ASCVD risk factor, treating to a non-HDL-C goal of <100 mg/dL (LDL-C of <70 mg/dL) is considered a therapeutic option. Blood BLOOD SPECIMEN / Unknown 02/04/2024 9:34 AM SHAREPOINT WEB DEVELOPER 02/04/2024 9:34 AM SHAREPOINT WEB DEVELOPER Ranjit Trimble MD CHEMISTRY Final Result [facility] [address] [place] [address], [email or web address] [address] [place] [address] * LC HIV-1/O/2, 4TH GENERATION (06/28/2022 11:30 AM CDT) [facility] HIV Scr 4th Gen Non Reactive Non Reactive 07/01/2022 12:07 PM CDT [facility] Comment: HIV Negative HIV-1/HIV-2 antibodies and HIV-1 p24 antigen were NOT detected. There is no laboratory evidence of HIV infection. Blood BLOOD SPECIMEN / Unknown Venipuncture / Unknown 06/28/2022 11:30 AM CDT 06/28/2022 11:33 AM CDT Narrative [facility] - 07/01/2022 12:07 PM CDT Performed at: [address] [place] [id number] Grades 1 Thru 6 Visiting Teacher: Rakesh Nicole MD, Phone: [phone] Glory Blunt DO LABORATORY Final Result Performing Organization Address City/[facility]/ZIP Co de Phone Number [facility] [address] [place] [id number], from Last 3 Months or Most Recently Relevant to Health Maintenance Insurance [facility] Advance Directives * Full Code (Latest Code [...] 6:40 PM 06/22/2008 9:32 PM Care Teams Director Home Relationship Specialty Start Date End Date Ranjit Trimble MD [address] [place] [address] [address] [place] [address] PCP - General Cardiovascular Disease 01/23/24 Karey Fleming NP [address] [place] [address] Sleep Medicine 01/28/24
--- OUTSIDE RECORDS SUMMARY | 2024-06-22 12:24 | XMS_ITS | Clinical Summary ---
Author Organization [place] Address [facility] [place] [address] Care Team Providers Care Sugar Cane Planter Machine Operator Name Role Phone Edgar Torres Primary Care Provider Radha Acevedo MD Unavailable [phone] Allergies No known active allergies Medications Mometasone Furoate (NASONEX NA) Apply 1 spray into each nare daily Active albuterol 90 MCG/ACT inhaler Inhale 2 puffs into the lungs 3 times daily as needed. Active Saline (SODIUM CHLORIDE) 0.65 % SOLN Baker 4 Squirts in nostril 4 times daily. [...] Diagnosed Date Coronary artery disease invo lving [place] heart, angina presence unspecified, unspecified vessel or [...] on file Legal Sex Male 3:43 AM DIRECTOR OF RETAIL MERCHANDISING Gender Identity Not on file Sexual Orientation Not on file Last Filed Vital Signs Vital Sign Reading Time Taken Comments Blood Pressure 147/89 04/29/2020 9:00 AM DIRECTOR OF RETAIL MERCHANDISING Pulse 80 04/29/2020 9:00 AM DIRECTOR OF RETAIL MERCHANDISING Temperature 35.2 C (95.4 F) 04/29/2020 9:00 AM DIRECTOR OF RETAIL MERCHANDISING Respiratory Rate 20 04/29/2020 9:00 AM DIRECTOR OF RETAIL MERCHANDISING Oxygen Saturation 92% 04/29/2020 9:00 AM DIRECTOR OF RETAIL MERCHANDISING Inhaled Oxygen Concentration - - Weight 118.9 kg (262 lb 1.6 oz) 04/28/2020 7:51 PM DIRECTOR OF RETAIL MERCHANDISING Height 188 cm (6' 2) 04/28/2020 7:51 PM DIRECTOR OF RETAIL MERCHANDISING Body Mass Index 33.65 04/28/2020 7:51 PM DIRECTOR OF RETAIL MERCHANDISING Plan of Treatment Not on file Insurance BCBS OUT OF STATE Advance Directives For more information, please contact: [phone] * Full Code (Latest Code Status on [...] patie nt/ legal decision maker Care Teams Sugar Cane Planter Machine Operator Relationship Specialty Start Date End Date Edgar Torres PCP - General Family Practice 02/18/14 Radha Ferro MD [address] [place] [address] [place] [id number] Internal Medicine 07/11/14
[2024-06-22 12:51] VITALS: BP 125/79; PULSE 86; RESP 16; TEMP 36.4; O2SAT 95; BMI 27.0
--- NOTE | 2024-06-22 12:54 | ED_ITS ---
HPI - General Adult General Time Seen by Provider: 12:54 Date Seen: 06/22/24 Chief complaint: Extremity Pain/Injury, Upper Stated complaint: right hand swelling, stiches 06/20 Time Seen by Provider: 06/22/24 12:33 Source: patient, family, RN notes reviewed and old records reviewed (ED note reviewed from 06/20) Mode of arrival: ambulatory Limitations: no limitations History of Present Illness HPI narrative: This 59-year-old male is returning to the ER with increasing right hand swelling and redness. He broke up a dog fight that involved his own dog on SaturdayJune 20, was bit by his own dog. His dog is up-to-date on rabies. He had 2 4 cm lacerations on his hand on review of the note, they were irrigated and repaired. Was placed on Keflex prophylactically. He has not noted fevers but last night felt chilled. His hand is quite sore in the distribution along the 5th metacarpal. Today he noticed increased swelling, increased redness, it is painful to move his fingers. Patient's tetanus was reported to be up-to-date in his prior ED note. Related Data Home Medications ?Medication ?Instructions ?Recorded ?Confirmed atorvastatin 40 mg tablet 40 mg PO HS 06/20/24 06/22/24 clopidogrel 75 mg tablet 75 mg PO DAILY 06/20/24 06/22/24 ezetimibe 10 mg tablet 10 mg PO DAILY 06/20/24 06/22/24 fluticasone 500 mcg-salmeterol 50 1 inh inhalation BID 06/20/24 06/22/24 mcg/dose blistr powdr for inhalation (Yonas Inhub) losartan 50 mg-hydrochlorothiazide 1 tab PO DAILY 06/20/24 06/22/24 12.5 mg tablet montelukast 10 mg tablet 10 mg PO HS 06/20/24 06/22/24 albuterol sulfate 90 mcg/actuation 2 inh inhalation Q4H PRN 06/22/24 06/22/24 aerosol inhaler (Ventolin HFA) cephalexin 500 mg tablet 500 mg PO QID 06/22/24 06/22/24 cholecalciferol (vitamin D3) 125 125 mcg PO DAILY 06/22/24 06/22/24 mcg (5,000 unit) capsule mometasone 50 mcg/actuation nasal 1 spray intranasal BID PRN 06/22/24 06/22/24 spray (Nasonex 24hr Allergy) multivitamin (Daily Multi-Vitamin 1 tab PO DAILY 06/22/24 06/22/24 tablet) semaglutide (weight loss) 2.4 2.4 mg subcut Q7D 06/22/24 06/22/24 mg/0.75 mL subcutaneous pen injector (Wegovy) Allergies Allergy/AdvReac Type Severity Reaction Status Date / Time No Known Drug Allergies Allergy Verified 06/20/24 18:49 Review of Systems Narrative: As per HPI. [facility] Medical History (Updated 06/22/24 @ 15:10 by Danie De Anda MD) Chronic sinusitis ?J32.9 - Chronic sinusitis, unspecified (ICD-10) Dyslipidemia ?E78.5 - Hyperlipidemia, unspecified (ICD-10) Hypertension ?I10 - Essential (primary) hypertension (ICD-10) Obstructive sleep apnea ?G47.33 - Obstructive sleep apnea (adult) (pediatric) (ICD-10) Obesity ?E66.9 - Obesity, unspecified (ICD-10) Asthma ?J45.909 - Unspecified asthma, uncomplicated (ICD-10) Coronary artery disease ?I25.10 - Atherosclerotic heart disease of [place]key coronary artery without angina pectoris (ICD-10) Surgical History (Updated 06/22/24 @ 15:04 by Danie De Anda MD) History of colonoscopy ?Z98.890 - Other specified postprocedural states (ICD-10) H/O sinus surgery ?Z98.890 - Other specified postprocedural states (ICD-10) H/O right coronary artery stent placement ?Z95.5 - Presence of coronary angioplasty implant and graft (ICD-10) Family History (Updated 06/22/24 @ 15:05 by Danie De Anda MD) Father Asthma Prostate cancer Brother Diabetes Heart disease Mother Lymphoma Social History (Updated 06/22/24 @ 15:06 by Danie De Anda MD) Narrative: He lives with his in the [facility]. He and his board dogs at their home as well as having their own dogs. is healthcare power of claim attorney. Second and 3rd healthcare power of claim attorney would be his 2 sons, 1 lives with him in 1 lives nearby. He quit smoking in 1993. He quit drinking alcohol in 2016 What is your current living situation?: I presently have a place to live Problems where you live: no known problems Problems where you live details: none In the past 12 months, utilities in danger of being shut off: no In past 12 months, lack of transportation kept you from medical appts, meetings, work, or getting things needed for daily living: no In the past 12 mos, have been you worried that your food would run out before you had money to buy more?: never true In the past 12 mos, the food you bought just didn't last and you didn't have money to buy more?: never true Highest level of school completed/degree received: high school graduate Smoking Status: Never smoker Do you use any of these nicotine containing products: None How often do you have a drink containing alcohol: never AUDIT-C Alcohol total score: 0 Non-prescribed substance use: denies use Caffeine: Yes (3 cups) How often does anyone, including family, friends and others, physically hurt you : never How often does anyone, including family, friends and others, insult or talk down to you: never How often does anyone, including family, friends and others, threaten you with harm: never How often does anyone, including family, friends and others, scream or curse at you: never service: No Exam Const: Vital Signs, click to edit/add: Vital Signs - 24 hr 06/22/24 12:51 06/22/24 14:48 Temperature 97.5 F L 97.5 F L Pulse Rate [Pulse Oximeter] 86 77 Respiratory Rate 16 16 Blood Pressure [Le ft Arm] 134/93 H Blood Pressure [Le ft Upper Arm] 125/79 Pulse Oximetry 95 95 Oxygen Delivery Me thod Room Air Room Air This 59-year-old male is alert, interactive, no apparent distress. Ambulatory into the ED of his own accord. Face atraumatic, sclera clear, able to speak in complete sentences. Lungs are clear, good air entry, no wheezing crackles. CV regular rate and rhythm, no murmur, normal S1-S2. His dorsum of his right hand extending onto the dorsal forearm and medial forearm has erythema. His hand is quite swollen, extends into the fingers. Erythema is not extending into the fingers. Can flex and extend the wrist. He has some limitation with flexion extension of the fingers. Movement of his fingers does cause significant pain in the hand. There is no appreciable discharge from his wounds, the swelling is can fluent like cellulitis. I do not feel any fluctuant area but palpation of the erythematous tissues is generally tender. Documenting provider has reviewed patient's vital signs: yes Course Course ED Course: Did talk to our hospitalist Dr. De Anda as well as our orthopedist Dr. Cerda right away, both were here quite quickly. We have all evaluated this patient, feel he is safe for hospitalization here. We will get an x-ray of his hand rule out underlying fracture. Dr. Cerda agrees that this patient should be hospitalized, feels that he does need IV antibiotics but there is no need for OR debridement at this time. He would be happy to provide this if patient does worsen or clinical status changes in indicates anything different. We will initiate IV Unasyn. Will get baseline labs as well as the right hand x-ray series. Reevaluation(s) Time of Reevaluation #1: 14:09 Reevaluation #1: Updated patient that hand x-ray shows no fractures. Vital Signs Vital signs: Initial Vital Signs Temperature 97.5 F L 06/22/24 12:51 Temperature Source Temporal Artery Scan 06/22/24 12:51 Pulse Rate 86 06/22/24 12:51 Respiratory Rate 16 06/22/24 12:51 Blood Pressure 125/79 06/22/24 12:51 Blood Pressure Mean 94 06/22/24 12:51 Blood Pressure Position Sitting 06/22/24 12:51 Pulse Oximetry 95 06/22/24 12:51 Oxygen Delivery Method Room Air 06/22/24 12:51 Vital Signs Temperature 97.5 F L 06/22/24 12:51 Pulse Rate 86 06/22/24 12:51 Respiratory Rate 16 06/22/24 12:51 Blood Pressure 125/79 06/22/24 12:51 Pulse Oximetry 95 06/22/24 12:51 Oxygen Delivery Method Room Air 06/22/24 12:51 Temperature 97.5 F L 06/22/24 14:48 Pulse Rate 77 06/22/24 14:48 Respiratory Rate 16 06/22/24 14:48 Blood Pressure 134/93 H 06/22/24 14:48 Pulse Oximetry 95 06/22/24 14:48 Oxygen Delivery Method Room Air 06/22/24 14:48 Medications Administered Medications: Generic Name Dose Route Start Last Admin Trade Name Freq PRN Reason Stop Dose Admin Ampicillin Sodium/Sulbactam 100 mls @ 200 mls/hr 06/22/24 13:15 06/22/24 20:25 Sodium 3 gm/ Sodium Chloride IVPB Infused Q6H ETTA Infusion Oxycodone HCl 5 mg 06/22/24 15:06 06/22/24 15:26 Oxycodone 5 Mg Tablet PO 5 mg Q4H PRN Administration Pain Medical Decision Making Lab Data Lab results reviewed: Yes I reviewed the patient's lab results Labs: Lab Results 06/22/24 Range/Units 13:25 WBC 8.27 (4.50-11.00) K/uL RBC 5.34 (4.30-5.90) m/uL Hgb 16.7 (13.5-17.5) gm/dL Hct 47.7 (37.0-53.0) % MCV 89 (80-100) fL MCH 31 (26-34) pg MCHC 35 (32-36) gm/dL RDW Coeff of Brody 13.2 (11.5-15.5) % Plt Count 219 (140-440) K/uL Neut % (Auto) 73.3 H (42.0-72.0) % Lymph % (Auto) 14.3 L (20-44) % Simpson % (Auto) 9.4 (0.0-11.0) % Eos % (Auto) 2.7 (0.0-7.0) % Baso % (Auto) 0.2 (0.0-3.0) % Neut # (Auto) 6.10 (1.7-7.0) K/uL Lymph # (Auto) 1.20 (0.90-2.90) K/uL Simpson # (Auto) 0.80 (0.00-0.90) K/UL Eos # (Auto) 0.22 (0.00-0.50) K/uL Baso # (Auto) 0.02 (0.00-0.30) K/uL Abs Immat Gran (auto) 0.01 (0.00-0.30) K/uL Imm/Tot Granulo (auto) 0.1 % Sodium 136 (135-149) mmol/L Potassium 3.8 (3.6-5.1) mmol/L Chloride 103 (96-114) mmol/L Carbon Dioxide 21 (20-32) mmol/L Anion Gap 12 (7-15) mEq/L BUN 10 (7-30) mg/dL Creatinine 0.7 (0.5-1.5) mg/dL Estimated Creat Clear 132.11 Estimated GFR 106 ml/min Glucose 94 (60-115) mg/dL Lactate 1.1 (0.5-1.9) mmol/L Calcium 9.5 (8.4-10.6) mg/dL C-Reactive Protein 6.8 H (0.5-1.0) mg/dL Imaging Data XR right hand: Attestation: I have reviewed the pertinent imaging results. My impression: Did visualize hand images, no fracture noted Radiologist's impression: Patient: CRISTOFER GANT Facility:?[facility] Patient ID:?[id number] Site Patient ID:?[id number]. Site :?[id number] Study:?XRay-Extremity Right 3 VIEWS-06/22/2024 1:28:53 PM Ordering Physician:?Anne Sidhu Final Report: INDICATION: Pain and recent dog bite COMPARISON: None. TECHNIQUE: Three radiographic view(s) of the right hand. FINDINGS: No evident acute displaced fracture. No radiopaque foreign body is detected. Overall minimal degenerative change. IMPRESSION: No evident acute displaced fracture. No radiopaque foreign body is detected. Dictated by Fareed Potter MD @ 06/22/2024 1:47:01 PM (Electronic Signature) Discharge Plan Discharge Clinical Impression: Cellulitis of hand, right Infected dog bite of hand Qualifiers: Encounter type: subsequent encounter Laterality: right Qualified Code(s): S61.451D - Open bite of right hand, subsequent encounter Patient Disposition: Admitted As Observation
--- NOTE | 2024-06-22 13:05 | CRLHL7_ITS ---
For Patients: As a result of the Cures Act, medical imaging exams and procedure reports are released immediately into your electronic medical record. You may view this report before your referring provider. If you have questions, please contact your health care provider. INDICATION: Pain and recent dog bite COMPARISON: None. TECHNIQUE: Three radiographic view(s) of the right hand. FINDINGS: No evident acute displaced fracture. No radiopaque foreign body is detected. Overall minimal degenerative change. IMPRESSION: No evident acute displaced fracture. No radiopaque foreign body is detected. Dictated by Fareed Potter MD @ 06/22/2024 1:47:01 PM (Electronically Signed)
--- OUTSIDE RECORDS SUMMARY | 2024-06-22 13:15 | XMS_ITS | Clinical Summary ---
Author Organization [facility] Address [address] [place] [address] Care Team Providers Care Turn Out Name Role Phone Ranjit Trimble MD Primary Care Provider Karey Fleming HAIRSPRING CUTTER Unavailable [phone] Allergies No known active allergies Medications Multivitamin Cmb No.21-Iron-FA 18-400 mg-mcg tab Take 1 tablet by mouth once daily. Active mometasone (NASONEX) (50 mcg each actuation) nasal spray Inhale 1 [place] into both nostrils 2 times daily. Active [...] in 5 years Coronary artery disease involving pilot station heart 0 04/28/2020 06/28/2022 Overview (06/28/2022): Replacing [...] heart disease 05/31/2011 Overview (05/31/2011): Brother had PA at 49 Pneumonitis 06/21/2008 Overview (06/21/2008): Evaluated [...] Department Care Team Description 06/22/2024 Nurse Triage [facility] [address] [place] [address] Glory Blunt DO Dog Bite (Follow-up) 05/20/2024 10:15 AM APARTMENT ASSISTANT MANAGER Telemedicine [facility] [address] [facility] [address] [facility] [address] [place] [phone] Karey Fleming NP Telehealth 05/15/2024 Travel 05/12/2024 Refill [facility] [address] [place] [address] Glory Blunt DO Refill Request (Hyzaar) 04/15/2024 Orders Only [facility] [address] [facility] [place] [id number] Rui Pope MD 1 scan: (1-Ord) [facility] 04/14/2024 8:27 AM APARTMENT ASSISTANT MANAGER - 04/14/2024 11:59 PM APARTMENT ASSISTANT MANAGER Hospital Encounter Rui Pope MD 04/14/2024 Orders Only [facility] [address] [facility] [address] [place] [address] Rui Pope MD <No scans attached> 04/14/2024 Surgery [facility] [address] [facility] [address] [place] [address] Rui Pope MD colonoscopy, screening 04/13/2024 Telephone [facility] [address] [place] [id number] Rui Pope MD Questions (Colonoscopy) 04/09/2024 8:05 AM APARTMENT ASSISTANT MANAGER Office Visit [facility] [address] [facility] [place] [id number] Glory Blunt DO Pre-Op Exam (Colonoscopy 04/14/24) 04/09/2024 Travel 04/07/2024 Telephone [facility] [address] [place] [id number] Rui Pope MD Appointment Reminder (Colonoscopy at [facility] 04/14/24) 03/26/2024 Telephone [facility] [address] [facility] [address] Rui Pope MD Need Meds from Last 3 Months Immunizations Immunization Administration Dates Next Due COVID-19 vaccine ([place] 30mcg/0.3mL) PF, MDV 06/28/2020,06/07/2020 INFLUENZA, IIV3 PF [...] Relation Name Comments Heart Disease Brother 2 PA age 49 Diabetes Brother 3 same brother wi th PA Allergies Father Asthma Father Cancer-prostate Father Lymphoma [...] AM CDT Legal Sex Male 6:51 AM APARTMENT ASSISTANT MANAGER Gender Identity Not on file Sexual Orientation Straight 06/04/2020 8: 32 AM CDT 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 Not on file Not on file Obstetrics History Last Filed Vital Signs Vital Sign Reading Time Taken Comments Blood Pressure 136/80 04/09/2024 8:11 AM APARTMENT ASSISTANT MANAGER Pulse 78 04/09/2024 8:11 AM APARTMENT ASSISTANT MANAGER Temperature 36.5 C (97.7 F) 04/09/2024 8:11 AM APARTMENT ASSISTANT MANAGER Respiratory Rate 16 07/12/2020 3:17 PM CDT Oxygen Saturation 93% 04/09/2024 8:11 AM APARTMENT ASSISTANT MANAGER Inhaled Oxygen Concentration - - Weight 97.4 kg (214 lb 12.8 oz) 04/09/2024 8:11 AM APARTMENT ASSISTANT MANAGER Height 188 cm (6' 2) 01/28/2024 9:45 AM APARTMENT ASSISTANT MANAGER Body Mass Index 27.58 01/28/2024 9:45 AM APARTMENT ASSISTANT MANAGER Plan of Treatment Health Maintenance Due Date [...] Comments COLONOSCOPY SCREENING Routine 04/14/2024 12:00 AM APARTMENT ASSISTANT MANAGER Encounter for screening colonoscopy POTASSIUM Routine 04/09/2024 8:38 AM APARTMENT ASSISTANT MANAGER Pre-op evaluation LIPID PANEL Routine 02/04/2024 9:34 AM APARTMENT ASSISTANT MANAGER Coronary artery disease due to calcified coronary lesion LC HIV-1/O/2, 4TH GENERATION Routine 06/28/2022 11:30 AM CDT Screening for HIV (human immunodeficiency virus) SURGICAL PROCEDURE (TYPE PROCEDURE DESCRIPTION BELOW) Encounter for screening colonoscopy from Last 3 Months or Most Recently Relevant to Health Maintenance Results * COLONOSCOPY SCREENING (04/14/2024 12:00 AM APARTMENT ASSISTANT MANAGER) Rui Pope MD GI PROCEDURE ORD Final Re sult * POTASSIUM (04/09/2024 8:38 AM APARTMENT ASSISTANT MANAGER) POTASSIUM 5.3 3.5 - 5.3 mmol/L [facility] Blood BLOOD SPECIMEN / Unknown 04/09/2024 8:38 AM APARTMENT ASSISTANT MANAGER 04/09/2024 8:38 AM APARTMENT ASSISTANT MANAGER Glory Blunt DO CHEMISTRY Final Result [facility] [address] [place] [address], [facility] [address] [place] [address] * LIPID PANEL (02/04/2024 9:34 AM APARTMENT ASSISTANT MANAGER) CHOLESTEROL, TOTAL 139 <200 mg/dL [facility] HDL CHOLESTEROL 56 > OR = 40 mg/dL [facility] TRIGLYCERIDES 105 <150 mg/dL [facility] LDL-CHOLESTEROL 64 mg/dL (calc) [facility] Comment: Reference range: <100 Desirable range <100 mg/dL for primary prevention; <70 mg/dL for patients with CHD or diabetic patients with > or = 2 CHD risk factors. LDL-C is now calculated using the Adilson calculation, which is a validated novel method providing better accuracy than the Friedewald equation in the estimation of LDL-C. Rui RENTERIA et al. RADHA. 2013;310(19): 1154-7506 (http://education.PhoneJoy Solutions/faq/LZM349) CHOL/HDLC RATIO 2.5 <5.0 (calc) [facility] NON HDL CHOLESTEROL 83 <130 mg/dL (calc) [facility] Comment: For patients with diabetes plus 1 major ASCVD risk factor, treating to a non-HDL-C goal of <100 mg/dL (LDL-C of <70 mg/dL) is considered a therapeutic option. Blood BLOOD SPECIMEN / Unknown 02/04/2024 9:34 AM APARTMENT ASSISTANT MANAGER 02/04/2024 9:34 AM APARTMENT ASSISTANT MANAGER Ranjit Trimble MD CHEMISTRY Final Result [facility] [address] [place] [address], [facility] [address] [place] [address] * LC HIV-1/O/2, 4TH GENERATION (06/28/2022 11:30 AM CDT) [facility] HIV Scr 4th Gen Non Reactive Non Reactive 07/01/2022 12:07 PM CDT [facility] Comment: HIV Negative HIV-1/HIV-2 antibodies and HIV-1 p24 antigen were NOT detected. There is no laboratory evidence of HIV infection. Blood BLOOD SPECIMEN / Unknown Venipuncture / Unknown 06/28/2022 11:30 AM CDT 06/28/2022 11:33 AM CDT Narrative [facility] - 07/01/2022 12:07 PM CDT Performed at: [address] [place] [id number] Machine Molder: Rakesh Nicole MD, Phone: [phone] Glory Blunt DO LABORATORY Final Result Performing Organization Address City/[facility]/ZIP Co de Phone Number [facility] [address] [place] [phone], from Last 3 Months or Most Recently Relevant to Health Maintenance Insurance [facility] Advance Directives * Full Code (Latest Code [...] 6:40 PM 06/22/2008 9:32 PM Care Teams Turn Out Relationship Specialty Start Date End Date Ranjit Trimble MD [address] [place] [address] [address] [place] [address] PCP - General Cardiovascular Disease 01/23/24 Karey Fleming NP [address] [place] [address] Sleep Medicine 01/28/24
--- OUTSIDE RECORDS SUMMARY | 2024-06-22 13:15 | XMS_ITS | Encounter Summary ---
Author Organization [facility] Address [address] [place] [address]. [place] [address] Care Team Providers Care Telephone Operators Supervisor Name Role Phone Edgar Torres Primary Care Provider Radha Acevedo MD Unavailable [phone] Encounter Details Date Type Department Care Team (Late st Contact Info) Description 12/21/2019 External Order Results [facility] [address] [place] [address] Outside, Provider Social History Tobacco Use Types Packs/Day Years Used Date Smoking Tobacco: Former Smokeless Tobacco: Never Alcohol Use Standard Drinks/Week Comments Yes 0 (1 standard drink = 0.6 oz pur e alcohol) social Sex and Gender Information Value Date Recorded Sex Assigned at Not on file Legal Sex Male 3:43 AM DRILL PRESS HAND Gender Identity Not on file Sexual Orientation [...] on filedocumented in this encounter Care Teams Telephone Operators Supervisor Relationship Specialty Start Date End Date Edgar Torres PCP - General Family Practice 02/18/14 Radha Ferro MD [address] [facility] [address] [place] [address] Internal Medicine 07/11/14 documented as of this encounter
--- OUTSIDE RECORDS SUMMARY | 2024-06-22 13:15 | XMS_ITS | Clinical Summary ---
Author Organization [facility] Address [address] [place] [address] Care Team Providers Care Bootmaker Name Role Phone Unavailable Primary Care Provider [...]
--- OUTSIDE RECORDS SUMMARY | 2024-06-22 13:15 | XMS_ITS | Clinical Summary ---
Author Organization [facility] Address [facility] [place] [address] Care Team Providers Care Airfield Defence Guard Name Role Phone Edgar Torres Primary Care Provider Radha Acevedo MD Unavailable Allergies No known active allergies Medications Mometasone Furoate (NASONEX NA) Apply 1 spray into each nare daily Active albuterol 90 MCG/ACT inhaler Inhale 2 puffs into the lungs 3 times daily as needed. Active Saline (SODIUM CHLORIDE) 0.65 % SOLN [place] 4 Squirts in nostril 4 times daily. [...] Diagnosed Date Coronary artery disease invo lving elim ira heart, angina presence unspecified, unspecified vessel or [...] on file Legal Sex Male 3:43 AM BIOLOGICAL SCIENTIST Gender Identity Not on file Sexual Orientation Not on file Last Filed Vital Signs Vital Sign Reading Time Taken Comments Blood Pressure 147/89 04/29/2020 9:00 AM BIOLOGICAL SCIENTIST Pulse 80 04/29/2020 9:00 AM BIOLOGICAL SCIENTIST Temperature 35.2 C (95.4 F) 04/29/2020 9:00 AM BIOLOGICAL SCIENTIST Respiratory Rate 20 04/29/2020 9:00 AM BIOLOGICAL SCIENTIST Oxygen Saturation 92% 04/29/2020 9:00 AM BIOLOGICAL SCIENTIST Inhaled Oxygen Concentration - - Weight 118.9 kg (262 lb 1.6 oz) 04/28/2020 7:51 PM BIOLOGICAL SCIENTIST Height 188 cm (6' 2) 04/28/2020 7:51 PM BIOLOGICAL SCIENTIST Body Mass Index 33.65 04/28/2020 7:51 PM BIOLOGICAL SCIENTIST Plan of Treatment Not on file Insurance BCBS OUT OF STATE Advance Directives For more information, please contact: [phone] * Full Code (Latest Code Status on [...] patie nt/ legal decision maker Care Teams Airfield Defence Guard Relationship Specialty Start Date End Date Edgar Torres PCP - General Family Practice 02/18/14 Radha Ferro MD [address] [place] [address] [place] [address] Internal Medicine 07/11/14
--- OUTSIDE RECORDS SUMMARY | 2024-06-22 13:15 | XMS_ITS | Referral Summary ---
Author Organization [facility] Address [address] [place] [address] Care Team Providers Care Tubular Splitting Machine Tender Name Role Phone Unavailable Primary Care Provider [...]
[2024-06-22 13:39] LABS: Lactate* 1.1 mmol/L (0.5-1.9)
[2024-06-22] MEDS: AMPICILLIN/SULBACTAM 3 GM in 0.9 % SODIUM CHLORIDE Mini-bag 100 ML IVPB ×2 (13:40→19:02)
[2024-06-22 13:46] LABS: Basophils Absolute Auto 0.02 K/uL (0.00-0.30); Basophils Percent Auto 0.2 % (0.0-3.0); Eosinophils Absolute Auto 0.22 K/uL (0.00-0.50); Eosinophils Percent Auto 2.7 % (0.0-7.0); Hematocrit 47.7 % (37.0-53.0); Hemoglobin* 16.7 gm/dL (13.5-17.5); Immature Granulocytes Abs Auto 0.01 K/uL (0.00-0.30); Immature Granulocytes Pct Auto 0.1 %; Lymphocytes Percent Auto 14.3 % (20-44); Mean Corpuscular HGB Conc 35 gm/dL (32-36); Mean Corpuscular Hemoglobin 31 pg (26-34); Mean Corpuscular Volume 89 fL (80-100); Monocytes Percent Auto 9.4 % (0.0-11.0); Neutrophils Percent Auto 73.3 % (42.0-72.0); Platelet Count* 219 K/uL (140-440); RDW Coefficient of Variation % 13.2 % (11.5-15.5); Red Blood Count 5.34 m/uL (4.30-5.90); White Blood Count* 8.27 K/uL (4.50-11.00)
[2024-06-22 13:48] LABS: Slide Review Reflex No
[2024-06-22 13:56] LABS: Chloride* 103 mmol/L (96-114); Potassium* 3.8 mmol/L (3.6-5.1); Sodium* 136 mmol/L (135-149)
[2024-06-22 13:59] LABS: Anion Gap 12 mEq/L (7-15); Blood Urea Nitrogen* 10 mg/dL (7-30); Carbon Dioxide* 21 mmol/L (20-32); Creatinine* 0.7 mg/dL (0.5-1.5); Est. Creatinine Clearance* 132.11; Estimated Glomerular Filt Rate 106 ml/min
[2024-06-22 14:00] LABS: Calcium* 9.5 mg/dL (8.4-10.6); Glucose* 94 mg/dL (60-115)
[2024-06-22 14:03] LABS: C Reactive Protein* 6.8 mg/dL (0.5-1.0)
[2024-06-22 14:48] VITALS: BP 134/93; PULSE 77; RESP 16; TEMP 36.4; O2SAT 95; BMI 26.9
--- NOTE | 2024-06-22 14:57 | PM.IMHP1 ---
Assessment and Plan Assessment and plan (1) Infected dog bite of hand: Problem comment: Patient's tetanus is up-to-date. Dog has been vaccinated for rabies. Status: Acute (2) Cellulitis of hand, right: Problem comment: He has failed outpatient management with cephalexin. Admit for IV Unasyn. Status: Acute (3) Hand laceration: Problem comment: Wound was sutured and now infected though no obvious abscess. Will not remove sutures at this time but that may be necessary if there is evidence of abscess. Status: Acute Plan 59-year-old male with a cellulitis of his right hand related to a dog bite 2 days ago with worsening cellulitis despite antibiotic therapy outpatient. He is admitted for IV antibiotics. Ortho has been consulted. Total Time Spent Total Time Spent: Total time spent today is 65 minutes in review of outside records, coordination of care and discussing with patient and other providers ongoing management of hand cellulitis from dog bite Hospitalist- H&P: HPI History of Present Illness Date Seen: 06/22/24 Chief complaint: right hand swelling, stiches 06/20 Narrative: Mike Ornelas is a 59 year old right-handed male with coronary artery disease, hypertension, TITUS and asthma is admitted to the hospital with worsening right hand redness and swelling. Two days ago he was bit by 1 of his own dogs as he was attempting to break up a fight between his dog and the dog he is boarding at his home. He sustained a laceration over the dorsum of the right hand 4th and 5th metacarpals. He came to our emergency room where he had the wound sutured and was started on cephalexin in anticipation of possible infection of his hand. Over the subsequent 2 days his hand is had increased swelling redness pain. At home he has had chills but has not noted a fever. He is no longer able to flex and extend his fingers of the right hand. The dog is up-to-date on rabies vaccine. The patient had a tetanus vaccine 2 years ago. He reports otherwise doing well. No other health concerns. [facility] Medical History (Updated 06/22/24 @ 15:10 by Danie De Anda MD) Chronic sinusitis ?J32.9 - Chronic sinusitis, unspecified (ICD-10) Dyslipidemia ?E78.5 - Hyperlipidemia, unspecified (ICD-10) Hypertension ?I10 - Essential (primary) hypertension (ICD-10) Obstructive sleep apnea ?G47.33 - Obstructive sleep apnea (adult) (pediatric) (ICD-10) Obesity ?E66.9 - Obesity, unspecified (ICD-10) Asthma ?J45.909 - Unspecified asthma, uncomplicated (ICD-10) Coronary artery disease ?I25.10 - Atherosclerotic heart disease of [place] coronary artery without angina pectoris (ICD-10) Surgical History (Updated 06/22/24 @ 15:04 by Danie De Anda MD) History of colonoscopy ?Z98.890 - Other specified postprocedural states (ICD-10) H/O sinus surgery ?Z98.890 - Other specified postprocedural states (ICD-10) H/O right coronary artery stent placement ?Z95.5 - Presence of coronary angioplasty implant and graft (ICD-10) Family History (Updated 06/22/24 @ 15:05 by Danie De Anda MD) Father Asthma Prostate cancer Brother Diabetes Heart disease Mother Lymphoma Social History (Updated 06/22/24 @ 15:06 by Danie De Anda MD) Narrative: He lives with his in the [facility]. He and his board dogs at their home as well as having their own dogs. is healthcare power of document review attorney. Second and 3rd healthcare power of document review attorney would be his 2 sons, 1 lives with him in 1 lives nearby. He quit smoking in 1993. He quit drinking alcohol in 2016 What is your current living situation?: I presently have a place to live Problems where you live: no known problems Problems where you live details: none In the past 12 months, utilities in danger of being shut off: no In past 12 months, lack of transportation kept you from medical appts, meetings, work, or getting things needed for daily living: no In the past 12 mos, have been you worried that your food would run out before you had money to buy more?: never true In the past 12 mos, the food you bought just didn't last and you didn't have money to buy more?: never true Highest level of school completed/degree received: high school graduate Smoking Status: Never smoker Do you use any of these nicotine containing products: None How often do you have a drink containing alcohol: never AUDIT-C Alcohol total score: 0 Non-prescribed substance use: denies use Caffeine: Yes (3 cups) How often does anyone, including family, friends and others, physically hurt you: never How often does anyone, including family, friends and others, insult or talk down to you: never How often does anyone, including family, friends and others, threaten you with harm: never How often does anyone, including family, friends and others, scream or curse at you: never service: No Meds Home Medications and Allergies Home Medications ?Medication ?Instructions ?Recorded ?Confirmed ?Type atorvastatin 40 mg tablet 40 mg PO DAILY 06/20/24 06/22/24 History clopidogrel 75 mg tablet 75 mg PO DAILY 06/20/24 06/22/24 History ezetimibe 10 mg tablet 10 mg PO DAILY 06/20/24 06/22/24 History fluticasone 500 mcg-salmeterol 50 1 inh inhalation BID 06/20/24 06/22/24 History mcg/dose blistr powdr for inhalation (Wixela Inhub) losartan 50 mg-hydrochlorothiazide 1 tab PO DAILY 06/20/24 06/22/24 History 12.5 mg tablet montelukast 10 mg tablet 10 mg PO QPM 06/20/24 06/22/24 History cephalexin 500 mg tablet 500 mg PO QID 06/22/24 06/22/24 History Allergies Allergy/AdvReac Type Severity Reaction Status Date / Time No Known Drug Allergies Allergy Verified 06/20/24 18:49 Exam Narrative: Exam Narrative: He is alert and appears in no distress. Eyes normal, oropharynx with normal mucosa. Small airway. Neck is supple without mass or adenopathy. Respirations are clear to auscultation. No wheezing rales or rhonchi. Somewhat distant heart and lung sounds. Cardiovascular: S1, S2, regular rate and rhythm. Abdomen is soft without tenderness or mass. Bowel sounds are active. Lower extremities without edema. Left upper extremities normal. Right upper extremity has a complex stellate laceration over the dorsum of the hand, 3rd 4th and 5th metacarpals. Sutures are in place approximating wound edges. The hand is moderately swollen and erythematous extending from the fingers about half way up the forearm. He has minimal motion in his fingers with extension and flexion. Intact sensation distally. Good capillary refill distally Const: Vital Signs, click to edit/add: Vital Signs - 24 hr 06/22/24 12:51 04/07/25 14:48 Temperature 97.5 F L 97.5 F L Pulse Rate [Pulse Oximeter] 86 77 Respiratory Rate 16 16 Blood Pressure [Le ft Arm] 134/93 H Blood Pressure [Le ft Upper Arm] 125/79 Pulse Oximetry 95 95 Oxygen Delivery Me thod Room Air Room Air Documenting provider has reviewed patient's vital signs: yes Hospitalist - H&P: Result Labs Labs: Short CBC 06/22/24 Range/Units 13:25 WBC 8.27 (4.50-11.00) K/uL Hgb 16.7 (13.5-17.5) gm/dL Hct 47.7 (37.0-53.0) % Plt Count 219 (140-440) K/uL BMP 06/22/24 13:25 Sodium 136 Potassium 3.8 Chloride 103 Carbon Dioxide 21 BUN 10 Creatinine 0.7 Glucose 94 Calcium 9.5
[2024-06-22] MEDS: OXYCODONE 5 MG TABLET PO (15:26)
--- NOTE | 2024-06-22 19:29 | PC.NURSE ---
End of shift- The pt was admitted to the unit for abx treatment for R hand dog bite cellulitis... rates his pain @ 4-5, PRN medication was given. Cellulitis is outlined and R hand is elevated on pillows, R hand fingers have weakness/ and impaired mobility. Up independently in the room, VSS on RA. Rachel LINARES BSN
[2024-06-22 19:55] VITALS: BP 124/86; PULSE 90; RESP 16; TEMP 36.8; O2SAT 94
[2024-06-22] MEDS: MONTELUKAST 10 MG TABLET PO (20:26)
[2024-06-22] MEDS: ACETAMINOPHEN 325 MG TABLET 975 MG PO (20:26)
[2024-06-22] MEDS: SODIUM CHLORIDE 0.9 % (FLUSH) 10 ML SYRINGE 5 ML IVF (20:28)
[2024-06-22] MEDS: ATORVASTATIN CALCIUM 40 MG TABLET PO (20:43)
[2024-06-22 23:00] VITALS: BP 112/76; PULSE 94; RESP 16; TEMP 37.2; O2SAT 91
[2024-06-23] VITALS (7 sets, daily range): BP systolic 113–143; BP diastolic 72–84; PULSE 85–95; RESP 16; TEMP 36.6–37.1; O2SAT 91–94
[2024-06-23] MEDS: AMPICILLIN/SULBACTAM 3 GM in 0.9 % SODIUM CHLORIDE Mini-bag 100 ML IVPB ×4 (01:30→19:29)
--- NOTE | 2024-06-23 06:20 | PC.NURSE ---
End of shift note [id number]: Pt A&Ox4 and able to make needs known. Sutures in place to posterior R hand with no new drainage noted. Surrounding redness has noted to be decreasing throughout the shift when compared to previous marking outline. Pt reports swelling has decreased and he has been able to use index and middle fingers easier when compared to yesterday. Pt transfers and ambulates independently. VSS and pt has been afebrile. Patient preferred PRN Tylenol vs PRN Oxycodone for pain control throughout the shift. No CP noted or reported. Pt tolerating regular diet with no N/V. Pt wears home CPAP which was evaluated by house registry rn last evening. Call light within reach. ?
[2024-06-23 06:50] LABS: Basophils Absolute Auto 0.02 K/uL (0.00-0.30); Basophils Percent Auto 0.3 % (0.0-3.0); Eosinophils Absolute Auto 0.25 K/uL (0.00-0.50); Eosinophils Percent Auto 3.7 % (0.0-7.0); Hemoglobin* 14.4 gm/dL (13.5-17.5); Immature Granulocytes Abs Auto 0.01 K/uL (0.00-0.30); Immature Granulocytes Pct Auto 0.1 %; Lymphocytes Percent Auto 13.3 % (20-44); Mean Corpuscular HGB Conc 34 gm/dL (32-36); Mean Corpuscular Hemoglobin 31 pg (26-34); Mean Corpuscular Volume 90 fL (80-100); Monocytes Percent Auto 10.9 % (0.0-11.0); Neutrophils Absolute Auto 4.87 K/uL (1.7-7.0); Neutrophils Percent Auto 71.7 % (42.0-72.0); Platelet Count* 206 K/uL (140-440); RDW Coefficient of Variation % 13.4 % (11.5-15.5); Red Blood Count 4.67 m/uL (4.30-5.90); White Blood Count* 6.79 K/uL (4.50-11.00)
[2024-06-23] MEDS: ACETAMINOPHEN 325 MG TABLET 975 MG PO ×3 (06:51→21:49)
[2024-06-23 06:55] LABS: Slide Review Reflex No
[2024-06-23 07:10] LABS: C Reactive Protein* 7.3 mg/dL (0.5-1.0)
[2024-06-23] MEDS: CLOPIDOGREL 75 MG TABLET PO (09:25)
[2024-06-23] MEDS: EZETIMIBE 10 MG TABLET PO (09:25)
[2024-06-23] MEDS: SODIUM CHLORIDE 0.9 % (FLUSH) 10 ML SYRINGE 5 ML IVF ×2 (09:25→20:36)
[2024-06-23] MEDS: LOSARTAN POTASSIUM 50 MG TABLET PO (09:25)
[2024-06-23] MEDS: hydroCHLOROthiazide 12.5 MG CAPSULE PO (09:25)
--- NOTE | 2024-06-23 18:28 | PC.NURSE ---
End of shift: patient alert and oriented x4. RA. VSS. tolerating a reg. diet. Patient up indep in room to chair and hallways. Patient denies N/V/SOB PRN tylenol administered for headache x1. Redness to right hand drawn out and is contained within the lines. Stitches covered w/Telfa and covered with tubigrip.
[2024-06-23] MEDS: MONTELUKAST 10 MG TABLET PO (20:35)
[2024-06-23] MEDS: ATORVASTATIN CALCIUM 40 MG TABLET PO (20:35)
[2024-06-24] MEDS: AMPICILLIN/SULBACTAM 3 GM in 0.9 % SODIUM CHLORIDE Mini-bag 100 ML IVPB ×3 (01:43→12:04)
[2024-06-24 02:52] VITALS: BP 127/87; PULSE 77; RESP 16; TEMP 36.6; O2SAT 93
--- NOTE | 2024-06-24 06:11 | PC.NURSE ---
End of shift report: VS WNL. Afebrile. R hand redness receding outline. Pt reports improvement in finger mobility. Small amount of dried blood noted on telfa dressing. Dressing intact with tubi sales and events coordinator. IV is SL in R AC. PRN tylenol given at HS to help prevent pain. Pt utilizing home CPAP. Ambulating independently in room. Tolerating regular diet. Call light within reach. ?
[2024-06-24 07:00] VITALS: BP 110/74; PULSE 80; RESP 16; TEMP 36.6; O2SAT 91
[2024-06-24] MEDS: hydroCHLOROthiazide 12.5 MG CAPSULE PO (09:01)
[2024-06-24] MEDS: CLOPIDOGREL 75 MG TABLET PO (09:01)
[2024-06-24] MEDS: SODIUM CHLORIDE 0.9 % (FLUSH) 10 ML SYRINGE 5 ML IVF (09:02)
[2024-06-24] MEDS: EZETIMIBE 10 MG TABLET PO (09:02)
[2024-06-24] MEDS: LOSARTAN POTASSIUM 50 MG TABLET PO (09:02)
--- NOTE | 2024-06-24 11:36 | PM.IMPN1 ---
Assessment and Plan Assessment and plan (1) Infected dog bite of hand: Problem comment: Patient's tetanus is up-to-date. Dog has been vaccinated for rabies. Status: Acute (2) Cellulitis of hand, right: Problem comment: He has failed outpatient management with cephalexin. Improving on Unasyn Status: Acute (3) Hand laceration: Problem comment: Wound was sutured and now infected though no obvious abscess. No obvious abscess. Status: Acute Plan Continue in hospital for another day of IV antibiotics, elevation and compression. Possible discharge to home tomorrow if continue to make progress. Total Time Spent Total Time Spent: Total time spent 25 minutes in coordination of care and discussing with patient ongoing management. Subjective Date Seen: 06/23/24 Interval history: Admission H&P: Mike Ornelas is a 59 year old right-handed male with coronary artery disease, hypertension, TITUS and asthma is admitted to the hospital with worsening right hand redness and swelling. Two days ago he was bit by 1 of his own dogs as he was attempting to break up a fight between his dog and the dog he is boarding at his home. He sustained a laceration over the dorsum of the right hand 4th and 5th metacarpals. He came to our emergency room where he had the wound sutured and was started on cephalexin in anticipation of possible infection of his hand. Over the subsequent 2 days his hand is had increased swelling redness pain. At home he has had chills but has not noted a fever. He is no longer able to flex and extend his fingers of the right hand. The dog is up-to-date on rabies vaccine. The patient had a tetanus vaccine 2 years ago. He reports otherwise doing well. No other health concerns. 06/23/2024: Patient reports generally feeling well. Still having significant pain in the area of the laceration on the dorsum of his hand. Still quite a bit of stiffness and swelling. The erythema is decreased significantly from yesterday. He has been elevating the hand. Exam Narrative: Exam Narrative: Hand is examined. Mild increase in the swelling and moderate increase in the intensity of the erythema. Erythema is retreating from the line demarcating the erythema on admission. He still has marked limitation of motion in his hand and fingers secondary to pain and stiffness. Distally he has in tech color motion and sensation. Const: Vital Signs, click to edit/add: Vital Signs - 24 hr 04/08/25 15:00 06/23/24 15:00 06/23/24 19:33 Temperature 97.9 F 98.6 F Pulse Rate [Pulse Oximeter] 95 95 90 Respiratory Rate 16 16 16 Blood Pressure [Le ft Arm] 143/83 H 115/72 Pulse Oximetry 94 93 Oxygen Delivery Me thod Room Air CPAP Room Air 06/23/24 21:25 06/23/24 22:00 06/24/24 02:52 Temperature 98.2 F 98 F Pulse Rate [Pulse Oximeter] 90 88 77 Respiratory Rate 16 16 16 Blood Pressure [Le ft Arm] 128/84 127/87 Pulse Oximetry 93 93 Oxygen Delivery Me thod CPAP CPAP 06/24/24 07:00 06/24/24 07:00 Temperature 97.8 F Pulse Rate [Pulse Oximeter] 80 80 Respiratory Rate 16 16 Blood Pressure [Le ft Arm] 110/74 Pulse Oximetry 91 Oxygen Delivery Me thod CPAP Documenting provider has reviewed patient's vital signs: yes
--- NOTE | 2024-06-24 11:40 | P.DS_ITS ---
DS: Providers Provider Date Seen: 06/24/24 Date of admission: 06/22/24 16:21 Primary care physician: SERENA DHALIWAL DO Admitting Clinician: Danie De Anda MD Attending Physician on discharge: Danie De Anda MD Date of Discharge: 06/24/24 DS: Diagnosis Discharge Diagnosis (1) Infected dog bite of hand: Status: Acute Problem details: Patient's tetanus is up-to-date. Dog has been vaccinated for rabies. (2) Cellulitis of hand, right: Status: Acute Problem details: He has failed outpatient management with cephalexin. Improving on Unasyn. Augmentin at discharge. (3) Hand laceration: Status: Acute Problem details: Wound was sutured and now infected though no obvious abscess. No obvious abscess. DS: Summary Hospital Course Hospital Course: Mike Ornelas is a 59 year old right-handed male with coronary artery disease, hypertension, TITUS and asthma is admitted to the hospital with worsening right hand redness and swelling. Two days ago he was bit by 1 of his own dogs as he was attempting to break up a fight between his dog and the dog he is boarding at his home. He sustained a laceration over the dorsum of the right hand 4th and 5th metacarpals. He came to our emergency room where he had the wound sutured and was started on cephalexin in anticipation of possible infection of his hand. Over the subsequent 2 days his hand is had increased swelling redness pain. At home he has had chills but has not noted a fever. He is no longer able to flex and extend his fingers of the right hand. The dog is up-to-date on rabies vaccine. The patient had a tetanus vaccine 2 years ago. He reports otherwise doing well. No other health concerns. During his hospital stay he had treatment with Unasyn. He had continuous improvement in swelling and erythema. Hand motion is improved but still quite stiff. He was also seen by Dr. Torres in consultation. No surgical intervention required at this time. Status at Discharge Overall status at discharge: patient is progressing back to baseline Time Spent with Patient Time attestation: Total time spent providing and/or coordinating discharge services: 35 minutes Time spent: Greater than 30 minutes Exam Narrative: Exam Narrative: Right hand is examined. He has mild swelling and erythema over the dorsum of the hand. This is much improved from admission. Sutures in the area of the laceration are intact there is slight serosanguineous drainage. No apparent abscess or swelling locally. He has near normal range of motion in the PIP and D IP joints of his fingers but marked decreased motion in the MCP joints of his hand. Also decreased motion in his wrist secondary to pain and stiffness. Extensor and flexor tendon function otherwise appears normal. He has intact capillary refill. Intact sensation Const: Vital Signs, click to edit/add: Vital Signs - 24 hr 06/23/24 15:00 06/23/24 15:00 06/23/24 19:33 Temperature 97.9 F 98.6 F Pulse Rate [Pulse Oximeter] 95 95 90 Respiratory Rate 16 16 16 Blood Pressure [Le ft Arm] 143/83 H 115/72 Pulse Oximetry 94 93 Oxygen Delivery Me thod Room Air CPAP Room Air 06/23/24 21:25 06/23/24 22:00 06/24/24 02:52 Temperature 98.2 F 98 F Pulse Rate [Pulse Oximeter] 90 88 77 Respiratory Rate 16 16 16 Blood Pressure [Le ft Arm] 128/84 127/87 Pulse Oximetry 93 93 Oxygen Delivery Me thod CPAP CPAP 06/24/24 07:00 06/24/24 07:00 Temperature 97.8 F Pulse Rate [Pulse Oximeter] 80 80 Respiratory Rate 16 16 Blood Pressure [Le ft Arm] 110/74 Pulse Oximetry 91 Oxygen Delivery Me thod CPAP Documenting provider has reviewed patient's vital signs: yes DS: Data Data Completed and Pending Labs on day of discharge: Preliminary micro results at discharge 06/22/24 15:41 Wound Culture - Preliminary Hand Right Gram positive cocci Imaging Radiograph of the right hand: Radiologist's impression: INDICATION: Pain and recent dog bite COMPARISON: None. TECHNIQUE: Three radiographic view(s) of the right hand. FINDINGS: No evident acute displaced fracture. No radiopaque foreign body is detected. Overall minimal degenerative change. IMPRESSION: No evident acute displaced fracture. No radiopaque foreign body is detected. Discharge Plan Discharge Disposition: Home, Self-Care Date of Admission: 06/22/24 16:21 Attending Provider on Discharge: Danie De Anda Primary Care Provider: SERENA DHALIWAL Condition: Improved Anticipated Discharge Date/Time: 06/24/24 13:00 Discharge Medications: New amoxicillin-pot clavulanate 875-125 mg tablet 1 tab PO BID Qty: 14 0RF Continued atorvastatin 40 mg tablet 40 mg PO HS clopidogrel 75 mg tablet 75 mg PO DAILY fluticasone propion-salmeterol [Wixela Inhub] 500-50 mcg/dose blister with device 1 inh INHALATION BID montelukast 10 mg tablet 10 mg PO HS losartan-hydrochlorothiazide 50-12.5 mg tablet 1 tab PO DAILY ezetimibe 10 mg tablet 10 mg PO DAILY multivitamin [Daily Multi-Vitamin] Tablet 1 tab PO DAILY mometasone [Nasonex 24hr Allergy] 50 mcg/actuation spray,non-aerosol 1 spray intranasal BID PRN Rx Instructions: administer into each nostril Wegovy 2.4 mg/0.75 mL pen injector 2.4 mg subcut Q7D Patient Comments: TAKES ON SATURDAY cholecalciferol (vitamin D3) 125 mcg (5,000 unit) capsule 125 mcg PO DAILY albuterol sulfate [Ventolin HFA] 90 mcg/actuation HFA aerosol inhaler 2 inh inhalation Q4H PRN Discontinued cephalexin 500 mg tablet 500 mg PO QID Discharge Orders: Discharge Order (Routine); Ordered 06/24/24 Ordered By: Danie De Anda Patient Education: Amoxicillin/Clavulanate Potassium (By mouth), Cellulitis (GEN) Additional Instructions: Elevate your right hand as much as possible. Continue to flex your fingers on the right hand to improve your range of motion. You may get your hand wet with clean water and soap. Gently pat dry and cover with gauze bandage afterwards. Discharge Diet: Regular Follow Up Appointments: Abhijit Torres MD [Staff Physician] - 06/30/24 8:50 am ([facility] for Appointment, please arrive at 8:30 for paperwork before your appointment. ) SERENA DHALIWAL DO [Primary Care Provider] - Forms: [employer] Info Instructions
--- NOTE | 2024-06-24 15:03 | PC.NURSE ---
Discharge: patient alert and oriented x4. pleasant and cooperative. PRN tylenol for pain. Patients left hand elevated, telfa in place over stitches and tubigrip in place. VSS, on RA. tolerating a reg. diet. Patient ambulating hallways indep. and up to chair for meals. Independent with toileting. Discharged to home at 1300 accompanied by spouse. IV removed intact. Patients belongings sheet signed and discharge paperwork. Patient verbalized understanding of discharge instructions and follow appointments.
== END 2024-06-24 13:00 | disposition home or self-care (01) | DRG 605 ==
LOC: ED 13:19 → MEDSURG 14:29
PROVIDERS: Admitting Provider Family Medicine; Emergency Provider Family Medicine; PCP Student in an Organized Health Care Education/Training Program; Visit Provider Family Medicine
DX: S61.451A Open bite of right hand, initial encounter (principal); L03.113 Cellulitis of right upper limb; W54.0XXA Bitten by dog, initial encounter; I10 Essential (primary) hypertension; G47.33 Obstructive sleep apnea (adult) (pediatric); E66.9 Obesity, unspecified; J45.909 Unspecified asthma, uncomplicated; I25.10 Atherosclerotic heart disease of native coronary artery without angina pectoris; E78.5 Hyperlipidemia, unspecified
CPT/HCPCS: 36415; 73130; 80048; 83605; 85025; 86140; 87070; 87186; 99284; 99285; A9270; J0295

== ENCOUNTER 2024-09-21 10:00 | Outpatient (RCR) | payer OTHER, SELFPAY ==
--- NOTE | 2024-07-01 16:51 | OT.OPOE ---
OT Outpatient Ortho Eval OT Outpatient Ortho Eval* Start: 07/01/24 16:20 Freq: Status: Active Protocol: Document 07/01/24 16:21 LCN (Rec: 07/01/24 16:47 LCN [id number]) E-signed By Delma Hooker OTR/L, CLT OT OP Ortho Eval Details Complexity Complexity Low Insurance Information Insurance Information [facility] Outpatient History/Precautions Current Condition/Medical Diagnosis Referring Provider Dr. Abhijit Cerda Medical Diagnoses R hand cellulitis with open dog bite. Treatment Diagnosis hand stiffness, weakness Date of Onset 06/20/24 Other Precautions Per MD--Ok to wash briefly with clean water, mild soap and pat dry, no soaking. Keep covered with gauze pad. Medical Conditions Heart Condition,Respiratory Other Conditions NON stemi in fall. 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 Critical Job Demands Static Sitting Hobbies Fostering dogs, motorcycle riding, large scale gardening, golf, horse shoes Fitness likes being active Ortho Subjective Subjective Subjective Mike Ornelas is a 59 year old right-handed male with coronary artery disease, hypertension, TITUS and asthma is admitted to the hospital with worsening right hand redness and swelling. 06/20/24 he was bit by 1 of his own dogs as he was attempting to break up a fight between his dog and the dog he is boarding at his home. He sustained a laceration over the dorsum of the right hand 4th and 5th metacarpals. He came to the emergency room where he had the wound sutured and was started on cephalexin in anticipation of possible infection of his hand. Over the subsequent 2 days his hand had increased swelling redness pain. At home he has had chills but has not noted a fever. He is no longer able to flex and extend his fingers of the right hand.The dog is up-to-date on rabies vaccine. The patient had a tetanus vaccine 2 years ago. (Per ER admission note 06/22/24). Pt did not do well with oral cephalexin. Admitted for IV Unasyn and was d/c on 06/24/24. Had sutures removed, 2 steristrips applied 06/30/24 and referred to OT to help with the hand weakness, stiffness, edema and pain. Pt has been doing well with elevating doing hooked flexion tendon gliding. Today the steristrips are off and his ulnar sided margins x 1/8 open and oozing serosanguinous non -odorous scant drainage after he did his CPR training this a .m. OTR re-applies steristrips during evaluation. Pain Assessment Pain Pain Yes Pain Comments 2-3/10 Range of Motion and Strength Wrist Range of Motion and Strength Wrist Range of Motion and Strength WR EX to 60 of 75, WR FL to 75 -[address] RD to 20 of 20 but pulls to ulnar styoid. UD to 45/45 . Hand/Finger/Thumb Range of Motion and Strength Hand/Finger/Thumb Range of Motion and Makes 60% of full fist. Strength IF/MF/RF/SF MCP's are 75/62/ 45/30 of 90. (RF SF more mobile to 105 MCP flexion passively. IF/MF/RF/SF PIP are 90 /108 / 75 / 68 of 105 IF/MF/RF/SF DIP are 35 /35/55/ 45 TISSUE-- hemosiderian brwon staining where the margins of cellulitis were, distended edema with brawny, gel like texture 3 x 5 cm area of R dorsal hand. Neutral warmth, hypersensitive to gentle massage at distal heads of MC4 /5. Hand Pinch/Paver Installer Strength Hand Pinch/Paver Installer Strength Hand Pinch/Paver Installer Strength Left Hand,Right Hand Left Hand Paver Installer Strength Position 1 in Elbow 98 Flexion (lbs) Lateral Pinch Strength (lbs) 25 Three Point Pinch (lbs) 23 Right Hand Paver Installer Strength Position 1 in Elbow 10 Flexion (lbs) Lateral Pinch Strength (lbs) 20 Three Point Pinch (lbs) 18 OT Problems Problems Problems Decreased Strength,Decreased Range of Motion,Decreased Dexterity,Pain,Sensory Sensitivity,Lifting,Gripping, Pinching Other Problems Writing,Opening Containers, Dressing,Fasteners,Sleeping Patient Potential Excellent Assessment Assessment Assessment Given Norberto's s?difficulty with edema, pain, ROM and strength loss of R hand/wrist limiting daily tasks, he would medically benefit from skilled OT to address these areas. Occupational Therapy Treatment Plan - OP Potential Rehabilitation Potential Excellent Goals Goals In 8 weeks, pt will demonstrate:? 1) Decreased pn to <2/10 80% of the time with sustained gripping, carrying groceries, using hand tools, gripping motorcycle/gold clubs, and planting/weeding. 2) I HEP for stretching, gradual strengthening and self mgmt strategies. 3) improved L novelty maker strength to 60# and pinch to 15# with R hand pain < 1/10. Treatment Plan Treatment Plan Evaluation,Edema Control,Joint Mobilization,Manual Therapy, Ultrasound,Wound Care/Scar Management,Therapeutic Exercise,Self Care/Home Management,Education Expected Frequency 1-2x Week Expected Duration 8-10 Weeks Home Program Home Program Home Program Initiated Home Program Specifics 07/01/24-- Compression gloves overnight/days ok also. Added saline wash and adaptic to wound care. Gentle weightbearing with B UE (as slow wall push ups), gentle gripping in sup/neutral and pronation. Certification Certification Statement I Certify That: Therapy Services Provided, Therapy Plan Established, Therapy Plan Reviewed Certification Information Clinic ID # [id number] Initial Certification Date 07/01/24 Recertification Due Date 09/29/24 Provider Signature Required Communication Only-No Signature Required
--- NOTE | 2024-09-21 18:12 | OT.OPODN ---
OT Outpatient Ortho Daily Note OT Outpatient Ortho Daily Note* Start: 07/01/24 16:20 Freq: Status: Active Protocol: Document 09/21/24 17:47 LCN (Rec: 09/21/24 18:07 LCN [id number]) E-signed By Delma Hooker OTR/L, CLT Type of Note Type of Note Type of Note Daily Note,Discharge Note,Note to MD Visit Number 8 Insurance Information Insurance [facility] Information Outpatient History/Precautions Current Condition/Medical Diagnosis Referring Provider Dr. Abhijit Cerda Medical Diagnoses R hand cellulitis with open dog bite. Treatment Diagnosis hand stiffness, weakness Date of Onset 06/20/24 Other Precautions Per MD--Ok to wash briefly with clean water, mild soap and pat dry, no soaking. Keep covered with gauze pad. Medical Conditions Heart Condition,Respiratory Other Conditions NON stemi in fall. 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 Critical Job Demands Static Sitting Hobbies Fostering dogs, motorcycle riding, large scale gardening, golf, horse shoes Fitness likes being active Ortho Subjective Subjective Subjective Pt really notices great improvement with wearing the foam chip pad at night to soften the indurated scar tissue. Pt can fully close fist, make flat fist (with mild fascial pulling), small finger composite rolled fist and opposition to TH are restricted by mc4/5 moderate fibrosis and edema 1.5 x .5 cm area (square shape). Agrees he is ready for d/c today. Pain Assessment Pain Pain Yes Pain Comments 0/10 OT OP Daily Ortho Note/Assessment Therapeutic Activity Therapeutic Activity Fibrosis mgmt--08/25/24-- Pt instructed in how to reduce Comments the size, intended benefit, risks to watch for ( pain , redness if too much pressure) and to wear QO HS inside glove. 08/03/24 - Ensure your hands are clean before starting the massage. Consider using a washcloth to keep incision clean - Can use dycem pad to increase traction/ friction. 2. Massage Techniques: - Circular Motion: Using two fingers, gently massage the scar in-place small circular motions 10 circles 1 cm away from incision line working around entire perimeter insections for 1-2 minutes. - Vertical Motion: Move your fingers up and down along the length of the scar for 1-2 minutes. - Horizontal Motion: Move your fingers side to side across the width of the scar for 1-2 minutes. 3. Pressure: - Start with light pressure and gradually increase as tolerated. The massage should not cause pain. 4. Frequency: - Perform the massage 2-3 times a day, 5-10 min for optimal results. 5. Duration: 08/11/24-- Pt educated in use of chip pad for fibrosis mgmt inside of his glove at night ( choose between scar gel or foam chip pad) 08/03/24- - Continue the massage routine for at least 8 weeks or as advised by your healthcare provider. Added scar gel to wear under his glove at night. Applied with coban for daytime trial today. Manual Therapy Manual Therapy 28 Minutes (minutes) Manual Therapy Provided MT with focus on decongestive tissue Comments mobilization to reduce swelling in order to improve joint mobility / ROM. Provided moderate tissue mobilization around perimeter of wound to reduce adhesion and improve circulation for healing. Pin and stretch, scar mgmt techniques with pinch/twist with dycem during pin and stretch motions of table top folds , finger abd/add, fist crunch to pen on towel. IASTM to dorsum of hand and palm/interossei Well tolerated. No drainage during moderate fibrosis mgmt techqniues, well tolerated. Hypersensitive at scar/bite line and .5 cm x 2 cm area surrounding former open area. Pt shown how to use a silicone cup for cupping massage oat dorsal hand and adding simons and stretch exercises for table top, dig abd/add, flat to rolled fist. Ultrasound Ultrasound Minutes ( 10 minutes) Ultrasound Frequency 3 MHz Continuous & Mode Intensity (w/cm2) 1.7 Ultrasound Comments as needed to support reduction of edema for tissue healing, improved circulation and tissue mobility. Total Occupational Therapy Time Occupational Therapy 38 Minutes Home Program Home Program Home Program Revised,Compliant Home Program 08/25/24-- pt to add chip pad every other night inside Specifics glove. 08/17/24-- scar gel with jerri cut out, steristrips and at corners and adaptic over the top, bandaide. 08/03/24--scar gel under glove, scar massage with dycem 07/14/24 Progressed resisted signal integrity engineer to green (medium) putty. 07/01/24-- Compression gloves overnight/days ok also. Added saline wash and adaptic to wound care. Gentle weightbearing with B UE (as slow wall push ups), gentle gripping in sup/neutral and pronation. Range of Motion and Strength Wrist Range of Motion and Strength Wrist Range of WR EX is 68 , WR FL is 90, RD is 25, UD is 45. Motion and Strength Hand/Finger/Thumb Range of Motion and Strength Hand/Finger/Thumb Pt able to complete full composite fist and opposition Range of Motion and to base of SF. Strength Goniometric Comments Goniometric Comments Goniometric Comments 08/17/24-- composite flexion IF/MF/RF/SF is .3/.3/.3/.3 cm. Limited arch of opposition per edema, touches TH tip to radial side of SF tip. 08/03/24-- composite flexion IF/MF/RF/SF is .7 / .3 / .7 / .7 cm ( WNL is <.5 CM Opposes thumb to the radial aspect of P3 but not tip. Hand Pinch/Filer Finish Strength Hand Pinch/Filer Finish Strength Hand Pinch/Filer Finish Left Hand,Right Hand Strength Left Hand Filer Finish Strength 101 Position 1 in Elbow Flexion (lbs) Lateral Pinch 29 Strength (lbs) Three Point Pinch ( 26 lbs) Right Hand Filer Finish Strength 105 Position 1 in Elbow Flexion (lbs) Lateral Pinch 25 Strength (lbs) Three Point Pinch ( 23 lbs) Comments Comments above per 08/03/24 08/25/24-- signal integrity engineer improved to 102#, no pain. 09/21/24 -- signal integrity engineer improved to 120#, no pain. OT Problems Problems Problems Decreased Strength,Decreased Range of Motion,Decreased Dexterity,Pain,Sensory Sensitivity,Lifting,Gripping, Pinching Other Problems Writing,Opening Containers,Dressing,Fasteners,Sleeping Patient Potential Excellent Assessment Assessment Assessment All goals met, d/c from OT. Pt very pleased with his outcome. No s/s of infection, wound continues to heal, no s/s of infection but still guided to monitor closely for redness, increased itching, drainage or pain as we increase the intensity of his mobilization. Occupational Therapy Treatment Plan - OP Potential Rehabilitation Excellent Potential Goals Goals After 8 visits, pt demonstrates-- 1) Decreased pn to <2/10 80% of the time with sustained gripping, carrying groceries, using hand tools, gripping motorcycle/gold clubs, and planting/weeding. 09/21/24-- GOAL MET. 2) I HEP for stretching, gradual strengthening and self mgmt strategies.09/21/24-- GOAL MET. 3) improved L signal integrity engineer strength to 60# and pinch to 15# with R hand pain < 1/10. 09/21/24-- GOAL MET/EXCEEDED Treatment Plan Treatment Plan Evaluation,Edema Control,Joint Mobilization,Manual Therapy,Ultrasound,Wound Care/Scar Management, Therapeutic Exercise,Self Care/Home Management, Education Expected Frequency 1-2x Week Expected Duration 8-10 Weeks Occupational Therapy Billing Units Treatment Minutes Timed Treatment 38 Minutes Total Treatment 38 Minutes Billing Units Manual Therapy 2 Ultrasound 1 Certification Statement Certification Statement I Certify That: Therapy Services Provided,Therapy Plan Established, Therapy Plan Reviewed Discharge Note Discharge Note Discharge Summary per above Date of First Visit 08/03/24 for Therapy Date of Last Visit 09/21/24 for Therapy Initial Primary as above Functional Limitations/Concerns Interventions Evaluation,Edema Control,Manual Therapy,Ultrasound, Provided During Wound Care/Scar Management,Therapeutic Activities,Self Treatment Care/Home Management Recommendations/ Met All Therapy Goals Reason for Discharge
== END 2025-01-19 23:59 | disposition home or self-care (01) ==
PROVIDERS: PCP Student in an Organized Health Care Education/Training Program; Visit Provider Orthopaedic Surgery Sports Medicine
DX: S61.451D Open bite of right hand, subsequent encounter (principal); L08.9 Local infection of the skin and subcutaneous tissue, unspecified; W54.0XXD Bitten by dog, subsequent encounter; Z51.89 Encounter for other specified aftercare
CPT/HCPCS: 97035; 97110; 97140; 97165; 97535; X5282